=== PATIENT | male | born 1990 | race Caucasian/White ===

== ENCOUNTER 2017-02-23 08:09 | Emergency (ER) | payer MEDICARE, OTHER ==
[2017-02-23 08:14] VITALS: BP 129/82; PULSE 63; RESP 18; TEMP 97
[2017-02-23] MEDS ORDERED: IBUPROFEN 600 MG TAB PO STA (08:28)
--- NOTE | 2017-02-23 08:34 | ED ---
Lower Extremity Injury HPI - General Chief Complaint: Extremity Injury, Lower Stated Complaint: Ankle Injury Time Seen by Provider: 02/23/17 08:15 Source: patient, RN notes reviewed Mode of arrival: wheelchair Limitations: no limitations - History of Present Illness Initial Comments: Patient is a 26-year-old male presents to the emergency room for evaluation of left ankle pain. Patient is present with his caregivers. Patient states he is on a swing yesterday, jumped off and twisted his left ankle. Patient states his left ankle is very swollen. Patient states having pain. Patient's caregivers thought that patient's ankle should be evaluated. Patient denies numbness or tingling in his toes. Patient denies any other injuries during incident. - Related Data Home Medications Medication Instructions Recorded Confirmed OLANZapine [ZyPREXA] 10 mg PO DAILY 10/07/14 02/23/17 Propranolol [Inderal] 40 mg PO BID 10/07/14 02/23/17 Divalproex Sodium [Depakote] 500 mg PO DAILY 02/23/17 02/23/17 Divalproex [Depakote] 250 mg PO DAILY 02/23/17 02/23/17 FLUoxetine HCL [PROzac] 80 mg PO DAILY 02/23/17 02/23/17 LORazepam [Ativan] 1 mg PO QID 02/23/17 02/23/17 Previous Rx's Medication Instructions Recorded Clindamycin Topical Soln 1 applic TOPICAL DAILY #1 applic 12/24/14 [Cleocin-T Topical Soln] Divalproex [Depakote] 1,500 mg PO HS #90 tablet. 12/24/14 Minocycline [Minocin] 100 mg PO DAILY #14 cap 12/24/14 Allergies Allergy/AdvReac Type Severity Reaction Status Date / Time No Known Allergies Allergy Verified 02/23/17 08:52 Review of Systems ROS Statement: Those systems with pertinent positive or pertinent negative responses have been documented in the HPI. ROS Other: All systems not noted in ROS Statement are negative. Past Medical History Past Medical History: Seizure Disorder Additional Past Medical History / Comment(s): anger issues, autistic, explosive disorder, mental retardation History of Any Multi-Drug Resistant Organisms: None Reported Past Surgical History: No Surgical Hx Reported Past Anesthesia/Blood Transfusion Reactions: No Reported Reaction Past Psychological History: ADD/ADHD Additional Psychological History / Comment(s): Intermittent explosive disorder Smoking Status: Never smoker Past Alcohol Use History: None Reported Additional Past Alcohol Use History / Comment(s): Patient resides at a snf and has a guardian. He denies smoking, medical marijuana or marijuana use , street drug use or alcohol use. Patient is single. Past Drug Use History: None Reported - Past Family History Mother Additional Family Medical History / Comment(s): Patient states mother is 44 years old and alive. Patient also has 1 brother and 1 sister which she state are healthy. General Exam - General Exam Comments Initial Comments: Sitting in exam room, no acute distress. Limitations: no limitations General appearance: alert, in no apparent distress Head exam: Present: atraumatic, normocephalic, normal inspection Eye exam: Present: normal appearance ENT exam: Present: normal exam Neck exam: Present: normal inspection Respiratory exam: Present: normal lung sounds bilaterally. Absent: respiratory distress Cardiovascular Exam: Present: regular rate, normal rhythm, normal heart sounds Left Ankle exam: Present: full ROM, tenderness (Lateral malleolus), swelling ( Lateral malleolus). Absent: normal inspection Foot/Toe exam: Present: normal inspection, full ROM. Absent: tenderness Neurovascular tendon exam: Present: no vascular compromise. Absent: pulse deficit (2+ dorsal pedal and posterior tibial pulses), abnormal cap refill ( Capillary refill less than 2 seconds) Back exam: Present: normal inspection Neurological exam: Present: alert, oriented X3, CN II-XII intact Psychiatric exam: Present: normal affect, normal mood Skin exam: Present: warm, dry, intact, normal color. Absent: rash Course Vital Signs 02/23/17 08:12 Temperature 97.0 F L Pulse Rate 63 Respiratory 18 Rate Blood Pressure 129/82 O2 Sat by Pulse 98 Oximetry Procedures - Orthopedic Splinting/Casting Injury #1 Side: left Lower Extremity Injury Location: ankle Lower Extremity Immobilizer: posterior splint (Short leg OCL posterior splint placed. 3 x 35". Neurovascular function is assessed and intact.) Medical Decision Making - Medical Decision Making Patient is a 26-year-old male presents emergency room for evaluation of left ankle pain and swelling. Left foot x-ray shows no acute findings. Left ankle x -ray showed a questionable avulsion fracture of the distal fibula. Patient placed in a short leg OCL splint and advised to follow-up with electronic commerce specialist for further evaluation. Patient's caregivers state they understand that was discussed with them. Return parameters discussed. Case discussed Dr. Sumner. - Radiology Data Radiology results: report reviewed, image reviewed Disposition Clinical Impression: Avulsion fracture of distal fibula Disposition: HOME SELF-CARE Condition: Good Instructions: Avulsion Fracture (ED) Additional Instructions: Rest, elevate and ice elevate and ice for 20 minutes on and off. Do not get splint wet. Do not remove splint until follow-up with electronic commerce specialist. Please follow-up with electronic commerce specialist in 24-48 hours for reevaluation. Tylenol or Motrin as needed for discomfort. Keep weight off of left foot. If new symptoms develop or symptoms worsen, please return to the ER. Referrals: Jimmy Purvis PAC [PHYSICIAN DELI ASSOCIATE] - 1-2 days Time of Disposition: 09:23
--- NOTE | 2017-02-23 08:48 | XR ---
EXAMINATION TYPE: XR foot complete LT DATE OF EXAM: 02/23/2017 8:44 AM COMPARISON: NONE HISTORY: Pain swelling TECHNIQUE: 3 view left foot FINDINGS: No acute fractures are evident. Joint spaces are preserved. Soft tissues appear unremarkabl e. Follow-up exam can be performed 7-10 days from acute trauma for continued pain. IMPRESSION: 1. Normal three-view left foot
--- NOTE | 2017-02-23 08:50 | XR ---
EXAMINATION TYPE: XR ankle complete LT DATE OF EXAM: 02/23/2017 8:44 AM COMPARISON: NONE HISTORY: Pain swelling lateral TECHNIQUE: 3 view left ankle FINDINGS: Ankle mortise is intact. There is soft tissue swelling over the lateral malleolus. Extremely subtle lucency may be at the tip of the distal fibula. This could be artifact. A displaced fracture is not identified. No additional areas suspicious for fracture is evident. IMPRESSION: 1. Nondisplaced avulsion at the tip of the distal ulna is not excluded. Follow-up exam in 7 days cou ld confirm possible avulsion. 2. Overlying soft tissue swelling lateral malleolus.
== END 2017-02-23 09:36 | disposition home or self-care (01) ==
LOC: EC 08:09
DX: S82.65XA Nondisplaced fracture of lateral malleolus of left fibula, initial encounter for closed fracture (principal); G40.909 Epilepsy, unspecified, not intractable, without status epilepticus; Z79.899 Other long term (current) drug therapy; X50.1XXA Overexertion from prolonged static or awkward postures, initial encounter; Y93.39 Activity, other involving climbing, rappelling and jumping off
CPT/HCPCS: 29515; 99283

== ENCOUNTER → 2017-03-09 | Outpatient (CLI) | payer MEDICARE, OTHER ==
[2017-03-09 08:13] LABS: Basophils % (A) 0 %; CHCM 34.1; Eosinophils % (A) 0 %; HCT 46.7 % (39.0-53.0); HDW 2.53; HGB 15.5 gm/dL (13.0-17.5); Luc % (Auto) 3; Lymphocytes # (A) 2.3 k/uL (1.0-4.8); Lymphocytes % (A) 56 %; MCH 33.1 pg (25.0-35.0); MCHC 33.1 g/dL (31.0-37.0); MCV 100.1 fL (80.0-100.0); Mean Platelet Volume 8.9; Monocytes # (A) 0.3 k/uL (0-1.0); Monocytes % (A) 7 %; Neutrophils # (A) 1.4 k/uL (1.3-7.7); Neutrophils % (A) 34 %; RBC 4.66 m/uL (4.30-5.90); RDW 12.6 % (11.5-15.5); WBC 4.2 k/uL (3.8-10.6)
[2017-03-09 08:31] LABS: ALT 33 U/L (21-72); AST 28 U/L (17-59); Alkaline Phosphatase 67 U/L (38-126); Anion Gap 12 mmol/L; Bilirubin, Delta 0.2 mg/dL (0.0-0.2); Blood Urea Nitrogen 17 mg/dL (9-20); Calcium 9.7 mg/dL (8.4-10.2); Carbon Dioxide 29 mmol/L (22-30); Chloride 103 mmol/L (98-107); Glucose 77 mg/dL (74-99); Non-African American GFR(MDRD) >60 (>60 ml/min/1.73 sqM); Potassium 4.6 mmol/L (3.5-5.1); Sodium 144 mmol/L (137-145); Total Bilirubin 0.5 mg/dL (0.2-1.3); Total Protein 7.1 g/dL (6.3-8.2)
[2017-03-09 10:48] LABS: Hemoglobin A1C 4.7 % (4.2-6.1)
[2017-03-09 11:53] LABS: Manual Review Performed
== END | disposition home or self-care (01) ==
LOC: LABWHC1 06:51
PROVIDERS: ATTEND Psychiatry & Neurology Psychiatry
DX: T50.905A Adverse effect of unspecified drugs, medicaments and biological substances, initial encounter (principal)
CPT/HCPCS: 36415; 80048; 80076; 80164; 83036; 84443; 85025

== ENCOUNTER → 2018-01-17 | Outpatient (CLI) | payer MEDICARE, OTHER ==
[2018-01-17 09:25] LABS: Basophils % (A) 0 %; Eosinophils % (A) 1 %; HGB 15.8 gm/dL (13.0-17.5); Lymphocytes # (A) 2.4 k/uL (1.0-4.8); Lymphocytes % (A) 58 %; MCH 32.4 pg (25.0-35.0); MCHC 34.3 g/dL (31.0-37.0); MCV 94.3 fL (80.0-100.0); Mean Platelet Volume 9.4; Monocytes # (A) 0.2 k/uL (0-1.0); Monocytes % (A) 5 %; Neutrophils # (A) 1.4 k/uL (1.3-7.7); Neutrophils % (A) 33 %; Platelet Count 162 k/uL (150-450); RBC 4.88 m/uL (4.30-5.90); RDW 11.9 % (11.5-15.5); WBC 4.2 k/uL (3.8-10.6)
[2018-01-17 09:45] LABS: ALT 18 U/L (21-72); AST 25 U/L (17-59); Albumin 4.3 g/dL (3.5-5.0); Alkaline Phosphatase 55 U/L (38-126); Anion Gap 14 mmol/L; Bilirubin, Delta 0.3 mg/dL (0.0-0.2); Bilirubin,Unconjugated 0.2 mg/dL (0.0-1.1); Blood Urea Nitrogen 14 mg/dL (9-20); Calcium 9.7 mg/dL (8.4-10.2); Carbon Dioxide 29 mmol/L (22-30); Chloride 103 mmol/L (98-107); Glucose 69 mg/dL (74-99); Potassium 4.3 mmol/L (3.5-5.1); Sodium 146 mmol/L (137-145); Total Bilirubin 0.5 mg/dL (0.2-1.3); Total Protein 7.2 g/dL (6.3-8.2)
[2018-01-17 10:03] LABS: T4, Free (Free Thyroxine) 0.92 ng/dL (0.78-2.19)
[2018-01-17 10:21] LABS: Valproic Acid (Depakene) 102.3 ug/mL
[2018-01-17 18:54] LABS: Hemoglobin A1C 4.7 % (4.0-6.0)
== END | disposition home or self-care (01) ==
LOC: LABWHC1 06:35
PROVIDERS: ATTEND Psychiatry & Neurology Psychiatry
DX: Z51.81 Encounter for therapeutic drug level monitoring (principal); Z79.899 Other long term (current) drug therapy
CPT/HCPCS: 36415; 80048; 80076; 80164; 83036; 84439; 84443; 85025

== ENCOUNTER → 2018-12-06 | Outpatient (CLI) | payer MEDICARE, OTHER ==
[2018-12-06 08:30] LABS: Basophils % (A) 1 %; Eosinophils % (A) 1 %; HCT 46.2 % (39.0-53.0); HGB 15.4 gm/dL (13.0-17.5); Lymphocytes % (A) 50 %; MCH 32.2 pg (25.0-35.0); MCHC 33.2 g/dL (31.0-37.0); Mean Platelet Volume 8.9; Monocytes # (A) 0.4 k/uL (0-1.0); Monocytes % (A) 10 %; Neutrophils # (A) 1.5 k/uL (1.3-7.7); Neutrophils % (A) 36 %; Platelet Count 146 k/uL (150-450); RBC 4.77 m/uL (4.30-5.90); RDW 12.4 % (11.5-15.5)
[2018-12-06 09:40] LABS: Appearance,Urine Clear (Clear); Bilirubin,Urine Negative (Negative); Blood,Urine Negative (Negative); Color,Urine Yellow; Glucose,Urine (UA) Negative (Negative); Ketones,Urine Negative (Negative); Leukocyte Esterase,Urine Negative (Negative); Nitrite,Urine Negative (Negative); PH, Urine 6.5 (5.0-8.0); Protein,Urine Negative (Negative); Specific Gravity,Urine 1.016 (1.001-1.035); Urobilinogen,Urine <2.0 mg/dL (<2.0)
[2018-12-06 10:13] LABS: Erythrocyte Sedimentation Rate 2 mm/hr (0-15)
[2018-12-06 17:54] LABS: Vitamin D 25 Hydroxy 79.9 ng/mL (30.0-100.0)
[2018-12-06 18:31] LABS: Albumin 4.5 g/dL (3.80-4.90); Albumin/Globulin Ratio 1.88 (1.60-3.17); Anion Gap 9.1 mmol/L (4.00-12.00); Calcium 9.6 mg/dL (8.7-10.3); Carbon Dioxide 26.9 mmol/L (21.6-31.8); Globulin 2.4 g/dL (1.6-3.3); LDL Cholesterol,Calculated 65.6 mg/dL (0.0-131.0); Potassium 4.2 mmol/L (3.5-5.5); Total Bilirubin 0.5 mg/dL (0.3-1.2); Total Protein 6.9 g/dL (6.2-8.2); VLDL Calculation 13.4 mg/dL (5.00-40.00)
== END ==
LOC: LABWHC1 07:47
PROVIDERS: ATTEND Family Medicine
DX: Z00.01 Encounter for general adult medical examination with abnormal findings (principal); Z79.899 Other long term (current) drug therapy
CPT/HCPCS: 36415; 80053; 80061; 81003; 82306; 82550; 82607; 84443; 85025; 85652

== ENCOUNTER 2019-02-03 21:00 | Emergency (ER) | payer MEDICARE, OTHER ==
[2019-02-03 21:13] VITALS: RESP 16
[2019-02-03] MEDS ORDERED: SODIUM CHLORIDE 0.9% 1,000 ML IV ONE (21:20)
--- NOTE | 2019-02-03 21:21 | ED ---
Altered Mental Status HPI - General Chief Complaint: Altered Mental Status Stated Complaint: low pulse/wearingheart monitor Time Seen by Provider: 02/03/19 21:20 Source: patient Mode of arrival: wheelchair - History of Present Illness Initial Comments: Chris is a pleasant 28-year-old gentleman who lives in a [facility]. He is brought to the emergency department today for evaluation of possible dizziness or lightheadedness. skilled nursing employee reports that the patient was recently evaluated by his primary care noted to have a low heart rate, his Imdur was discontinued and a heart monitor was placed. munitions worker reports a two- day Chris walked into the room and seemed to hold onto a chair to steady himself and then sit down. He denied any complaints but they were concerned that he may be feeling lightheaded or his heart rate may be low again so he was brought to the emergency department for evaluation. Chris denies any specific complaints. He reports that he feels good and asks for katie angela with ice. - Related Data Home Medications Medication Instructions Recorded Confirmed FLUoxetine HCL [PROzac] 80 mg PO DAILY 02/23/17 02/23/17 LORazepam [Ativan] 1 mg PO QID 02/23/17 02/23/17 Benztropine Mesylate [Cogentin] 1 mg PO DAILY PRN 02/03/19 02/03/19 Divalproex ER [Depakote ER] 1,500 mg PO HS 02/03/19 02/03/19 Divalproex ER [Depakote ER] 500 mg PO DAILY 02/03/19 02/03/19 Ergocalciferol (Vitamin D2) 50,000 unit PO MO 02/03/19 02/03/19 [Vitamin D2] LORazepam [Ativan] 0.5 mg PO DAILY PRN 02/03/19 02/03/19 OLANZapine [ZyPREXA] 5 mg PO DAILY PRN 02/03/19 02/03/19 Paliperidone IM [Invega Sustenna] 234 mg IM Q28D 02/03/19 02/03/19 Allergies Allergy/AdvReac Type Severity Reaction Status Date / Time No Known Allergies Allergy Verified 02/23/17 08:52 Review of Systems ROS Statement: Those systems with pertinent positive or pertinent negative responses have been documented in the HPI. ROS Other: All systems not noted in ROS Statement are negative. Past Medical History Past Medical History: Seizure Disorder Additional Past Medical History / Comment(s): anger issues, autistic, explosive disorder, mental retardation, Low heart rate with halter monitor 02/03/2019 History of Any Multi-Drug Resistant Organisms: None Reported Past Surgical History: No Surgical Hx Reported Past Anesthesia/Blood Transfusion Reactions: No Reported Reaction Past Psychological History: ADD/ADHD Smoking Status: Never smoker Past Alcohol Use History: None Reported Past Drug Use History: None Reported - Past Family History Mother Additional Family Medical History / Comment(s): Patient states mother is 44 years old and alive. Patient also has 1 brother and 1 sister which she state are healthy. General Exam - General Exam Comments Initial Comments: Physical Exam GENERAL: Patient is well-developed and well-nourished. Patient is nontoxic and well-hydrated and is in no distress. HENT: Normocephalic, Atraumatic. EYES: PERRL, EOMI PULMONARY: Unlabored respirations. No audible rales rhonchi or wheezing was noted. CARDIOVASCULAR: There is a regular rate and rhythm without any murmurs gallops or rubs. Holter monitor in place ABDOMEN: Soft and nontender with normal bowel sounds. SKIN: Skin is clear with no lesions or rashes and otherwise unremarkable. 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 No lower extremity swelling or edema. PSYCHIATRIC: Childlike demeanor Course Vital Signs 02/03/19 02/03/19 21:08 22:29 Temperature 98.7 F 98.1 F Pulse Rate 81 78 Respiratory 16 16 Rate Blood Pressure 148/97 158/97 O2 Sat by Pulse 98 100 Oximetry Medical Decision Making - Medical Decision Making The patient was seen and evaluated, history was obtained from medical record and [facility] employee at bedside Patient has recently been evaluated for low heart rate, today he seemed to be holding onto a chair and they were concerned that he may be lightheaded to the brought him to the ER for evaluation Patient's vital signs were unremarkable he is not hypotensive or bradycardic Basic labs and imaging were ordered patient is sitting up comfortably with no complaints he is able to communicate make his needs known he asked for katie angela in a cup with ice and a straw and was given that he drinks 2 small cans of katie angela and then asked for ice water. Patient was able to ambulate inde pendently with no evidence of any deficits. Labs and imaging were unremarkable. These results were discussed with the [facility] employee and the patient was discharged home in stable condition. - Lab Data Result diagrams: 02/03/19 21:10 02/03/19 21:10 Lab Results 02/03/19 02/03/19 02/03/19 Range/Units 21:10 21:10 21:10 WBC 5.0 (3.8-10.6) k/uL RBC 5.02 (4.30-5.90) m/uL Hgb 16.0 (13.0-17.5) gm/dL Hct 48.0 (39.0-53.0) % MCV 95.6 (80.0-100.0) fL MCH 31.9 (25.0-35.0) pg MCHC 33.4 (31.0-37.0) g/dL RDW 13.2 (11.5-15.5) % Plt Count 152 (150-450) k/uL Neutrophils % 36 % Lymphocytes % 52 % Monocytes % 8 % Eosinophils % 1 % Basophils % 0 % Neutrophils # 1.8 (1.3-7.7) k/uL Lymphocytes # 2.6 (1.0-4.8) k/uL Monocytes # 0.4 (0-1.0) k/uL Eosinophils # 0.0 (0-0.7) k/uL Basophils # 0.0 (0-0.2) k/uL Sodium 143 (137-145) mmol/L Potassium 4.1 (3.5-5.1) mmol/L Chloride 105 (98-107) mmol/L Carbon Dioxide 30 (22-30) mmol/L Anion Gap 8 mmol/L BUN 12 (9-20) mg/dL Creatinine 0.69 (0.66-1.25) mg/dL Est GFR (CKD-EPI)AfAm >90 (>60 ml/min/1.73 sqM) Est GFR (CKD-EPI)NonAf >90 (>60 ml/min/1.73 sqM) Glucose 103 H (74-99) mg/dL Calcium 9.8 (8.4-10.2) mg/dL Total Bilirubin 0.6 (0.2-1.3) mg/dL AST 30 (17-59) U/L ALT 22 (21-72) U/L Alkaline Phosphatase 57 (38-126) U/L Troponin I <0.012 (0.000-0.034) ng/mL Total Protein 7.9 (6.3-8.2) g/dL Albumin 4.8 (3.5-5.0) g/dL Urine Color Urine Appearance (Clear) Urine pH (5.0-8.0) Ur Specific [place] (1.001-1.035) Urine Protein (Negative) Urine Glucose (UA) (Negative) Urine Ketones (Negative) Urine Blood (Negative) Urine Nitrite (Negative) Urine Bilirubin (Negative) Urine Urobilinogen (<2.0) mg/dL Ur Leukocyte Esterase (Negative) Urine Opiates Screen (NotDetected) Ur Oxycodone Screen (NotDetected) Urine Methadone Screen (NotDetected) Ur Propoxyphene Screen (NotDetected) Ur Barbiturates Screen (NotDetected) U Tricyclic Antidepress (NotDetected) Ur Phencyclidine Scrn (NotDetected) Ur Amphetamines Screen (NotDetected) U Methamphetamines Scrn (NotDetected) U Benzodiazepines Scrn (NotDetected) Urine Cocaine Screen (NotDetected) U Marijuana (THC) Screen (NotDetected) 02/03/19 Range/Units 21:28 WBC (3.8-10.6) k/uL RBC (4.30-5.90) m/uL Hgb (13.0-17.5) gm/dL Hct (39.0-53.0) % MCV (80.0-100.0) fL MCH (25.0-35.0) pg MCHC (31.0-37.0) g/dL RDW (11.5-15.5) % Plt Count (150-450) k/uL Neutrophils % % Lymphocytes % % Monocytes % % Eosinophils % % Basophils % % Neutrophils # (1.3-7.7) k/uL Lymphocytes # (1.0-4.8) k/uL Monocytes # (0-1.0) k/uL Eosinophils # (0-0.7) k/uL Basophils # (0-0.2) k/uL Sodium (137-145) mmol/L Potassium (3.5-5.1) mmol/L Chloride (98-107) mmol/L Carbon Dioxide (22-30) mmol/L Anion Gap mmol/L BUN (9-20) mg/dL Creatinine (0.66-1.25) mg/dL Est GFR (CKD-EPI)AfAm (>60 ml/min/1.73 sqM) Est GFR (CKD-EPI)NonAf (>60 ml/min/1.73 sqM) Glucose (74-99) mg/dL Calcium (8.4-10.2) mg/dL Total Bilirubin (0.2-1.3) mg/dL AST (17-59) U/L ALT (21-72) U/L Alkaline Phosphatase (38-126) U/L Troponin I (0.000-0.034) ng/mL Total Protein (6.3-8.2) g/dL Albumin (3.5-5.0) g/dL Urine Color Light Yellow Urine Appearance Clear (Clear) Urine pH 6.5 (5.0-8.0) Ur Specific [place] 1.006 (1.001-1.035) Urine Protein Negative (Negative) Urine Glucose (UA) Negative (Negative) Urine Ketones Negative (Negative) Urine Blood Negative (Negative) Urine Nitrite Negative (Negative) Urine Bilirubin Negative (Negative) Urine Urobilinogen <2.0 (<2.0) mg/dL Ur Leukocyte Esterase Negative (Negative) Urine Opiates Screen Not Detected (NotDetected) Ur Oxycodone Screen Not Detected (NotDetected) Urine Methadone Screen Not Detected (NotDetected) Ur Propoxyphene Screen Not Detected (NotDetected) Ur Barbiturates Screen Not Detected (NotDetected) U Tricyclic Antidepress Not Detected (NotDetected) Ur Phencyclidine Scrn Not Detected (NotDetected) Ur Amphetamines Screen Not Detected (NotDetected) U Methamphetamines Scrn Not Detected (NotDetected) U Benzodiazepines Scrn Detected H (NotDetected) Urine Cocaine Screen Not Detected (NotDetected) U Marijuana (THC) Screen Not Detected (NotDetected) Disposition Clinical Impression: Well adult health check Disposition: HOME SELF-CARE Condition: Stable Instructions (If sedation given, give patient instructions): Altered Mental Status (ED) Is patient prescribed a controlled substance at d/c from ED?: No Referrals: Epi Haddad MD [Primary Care Provider] - 1-2 days
[2019-02-03 21:40] LABS: Basophils % (A) 0 %; Eosinophils % (A) 1 %; Lymphocytes # (A) 2.6 k/uL (1.0-4.8); Lymphocytes % (A) 52 %; MCH 31.9 pg (25.0-35.0); MCHC 33.4 g/dL (31.0-37.0); MCV 95.6 fL (80.0-100.0); Mean Platelet Volume 9.2; Monocytes # (A) 0.4 k/uL (0-1.0); Monocytes % (A) 8 %; Neutrophils # (A) 1.8 k/uL (1.3-7.7); Neutrophils % (A) 36 %; Platelet Count 152 k/uL (150-450); RBC 5.02 m/uL (4.30-5.90); RDW 13.2 % (11.5-15.5)
[2019-02-03 21:44] LABS: Appearance,Urine Clear (Clear); Bilirubin,Urine Negative (Negative); Blood,Urine Negative (Negative); Color,Urine Light Yellow; Glucose,Urine (UA) Negative (Negative); Ketones,Urine Negative (Negative); Leukocyte Esterase,Urine Negative (Negative); Nitrite,Urine Negative (Negative); PH, Urine 6.5 (5.0-8.0); Protein,Urine Negative (Negative); Specific Gravity,Urine 1.006 (1.001-1.035); Urobilinogen,Urine <2.0 mg/dL (<2.0)
--- NOTE | 2019-02-03 21:51 | XR ---
EXAMINATION TYPE: XR chest 2V DATE OF EXAM: 02/03/2019 COMPARISON: 07/24/2011 HISTORY: Altered mental status TECHNIQUE: Frontal and lateral views of the chest are obtained. FINDINGS: Heart and mediastinum are normal. Lungs are clear. Diaphragm is normal. Bony thorax is int act. There is mild thoracic dextroscoliosis. IMPRESSION: No cardiopulmonary disease.. No change.
[2019-02-03 21:55] LABS: Amphetamine Screen,Urine Not Detected (NotDetected); Barbiturate Screen,Urine Not Detected (NotDetected); Benzodiazepines Screen,Urine Detected (NotDetected); Cocaine Screen,Urine Not Detected (NotDetected); Methadone Screen, Urine Not Detected (NotDetected); Opiate Screen,Urine Not Detected (NotDetected); Oxycodone Screen, Urine Not Detected (NotDetected); Phencyclidine Screen,Urine Not Detected (NotDetected); Tricyclic Antidepressant,Urine Not Detected (NotDetected); Urn Cannabinoid Scrn Not Detected (NotDetected)
[2019-02-03 22:18] LABS: ALT 22 U/L (21-72); AST 30 U/L (17-59); Albumin 4.8 g/dL (3.5-5.0); Alkaline Phosphatase 57 U/L (38-126); Anion Gap 8 mmol/L; Blood Urea Nitrogen 12 mg/dL (9-20); Calcium 9.8 mg/dL (8.4-10.2); Carbon Dioxide 30 mmol/L (22-30); Chloride 105 mmol/L (98-107); Glucose 103 mg/dL (74-99); Potassium 4.1 mmol/L (3.5-5.1); Sodium 143 mmol/L (137-145); Total Bilirubin 0.6 mg/dL (0.2-1.3); Total Protein 7.9 g/dL (6.3-8.2)
[2019-02-03 22:35] VITALS: BP 158/97; PULSE 78; TEMP 98.1
== END 2019-02-03 22:33 | disposition home or self-care (01) ==
LOC: EC 21:00
DX: Z00.00 Encounter for general adult medical examination without abnormal findings (principal); F91.8 Other conduct disorders; G40.909 Epilepsy, unspecified, not intractable, without status epilepticus; F84.0 Autistic disorder; F79 Unspecified intellectual disabilities; Z79.899 Other long term (current) drug therapy; Z95.811 Presence of heart assist device
CPT/HCPCS: 36415; 71046; 80053; 80306; 81003; 84484; 85025; 93005; 96360; 99285

== ENCOUNTER → 2019-02-28 | Outpatient (CLI) | payer MEDICARE, OTHER | LOC: RADECHMAIN 10:01 | PROVIDERS: ATTEND Family Medicine | DX: Z53.9 Procedure and treatment not carried out, unspecified reason (principal) ==

== ENCOUNTER → 2019-04-05 | Outpatient (CLI) | payer MEDICARE, OTHER ==
[2019-04-05 10:57] LABS: Basophils % (A) 0 %; Eosinophils % (A) 1 %; HCT 44.4 % (39.0-53.0); HGB 14.8 gm/dL (13.0-17.5); Lymphocytes # (A) 1.8 k/uL (1.0-4.8); Lymphocytes % (A) 52 %; MCHC 33.5 g/dL (31.0-37.0); MCV 95.6 fL (80.0-100.0); Mean Platelet Volume 8.7; Monocytes # (A) 0.3 k/uL (0-1.0); Monocytes % (A) 8 %; Neutrophils # (A) 1.3 k/uL (1.3-7.7); Neutrophils % (A) 37 %; Platelet Count 159 k/uL (150-450); RBC 4.64 m/uL (4.30-5.90); WBC 3.4 k/uL (3.8-10.6)
[2019-04-05 17:47] LABS: African American GFR (CKD) 139.9 (60.0-200.0); Albumin 4.4 g/dL (3.80-4.90); Albumin/Globulin Ratio 2.2 (1.60-3.17); Anion Gap 7.7 mmol/L (4.00-12.00); BUN/Creat Ratio 16.25 Ratio (12.00-20.00); Calcium 9.5 mg/dL (8.7-10.3); Carbon Dioxide 28.3 mmol/L (21.6-31.8); Potassium 4.3 mmol/L (3.5-5.5); Total Bilirubin 0.5 mg/dL (0.2-1.2); Total Protein 6.4 g/dL (6.2-8.2)
[2019-04-05 18:17] LABS: Gliadin AB IgA, Unit <0.2 U/mL
[2019-04-05 18:46] LABS: Helicobacter pylori IgG Abs <0.40 U/mL
== END | disposition home or self-care (01) ==
LOC: LABWHC1 10:08
PROVIDERS: ATTEND Internal Medicine
DX: R11.2 Nausea with vomiting, unspecified (principal)
CPT/HCPCS: 36415; 80053; 82150; 83516; 83690; 85025; 86677

== ENCOUNTER 2019-04-19 17:57 | Inpatient (IN) | payer MEDICARE, MEDICAID ==
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
[2019-04-19 18:58] LABS: Amphetamine Screen,Urine Not Detected (NotDetected); Barbiturate Screen,Urine Not Detected (NotDetected); Benzodiazepines Screen,Urine Detected (NotDetected); Cocaine Screen,Urine Not Detected (NotDetected); Methadone Screen, Urine Not Detected (NotDetected); Opiate Screen,Urine Not Detected (NotDetected); Oxycodone Screen, Urine Not Detected (NotDetected); Phencyclidine Screen,Urine Not Detected (NotDetected); Tricyclic Antidepressant,Urine Not Detected (NotDetected); Urn Cannabinoid Scrn Not Detected (NotDetected)
[2019-04-19] MEDS ORDERED: ZIPRASIDONE 20 MG VIAL IM STA (20:12)
[2019-04-19] MEDS ORDERED: LORazepam 2 MG/ML INJ IM STA (20:12)
[2019-04-19] MEDS ORDERED: MAGNESIUM HYDROXIDE 2,400 MG/10 ML CUP PO PRN (21:52)
[2019-04-19] MEDS ORDERED: MAG HYDROX/AL HYDROX/SIMETH 30 ML CUP PO PRN (21:52)
[2019-04-19] MEDS ORDERED: OLANZapine 5 MG TAB PO PRN (21:59)
[2019-04-19] MEDS ORDERED: LORazepam 0.5 MG TAB PO PRN (21:59)
[2019-04-19] MEDS ORDERED: BENZTROPINE MESYLATE 1 MG TAB PO PRN (21:59)
[2019-04-19] MEDS: DIVALPROEX ER 500 MG TAB.ER.24H PO SCH (22:38)
[2019-04-20] MEDS: ACETAMINOPHEN TAB 325 MG TAB PO PRN ×2 (04:23→17:01)
[2019-04-20] MEDS: FAMOTIDINE 20 MG TAB PO SCH ×2 (05:40→16:13)
[2019-04-20] MEDS ORDERED: DIVALPROEX ER 500 MG TAB.ER.24H PO SCH (08:00)
[2019-04-20] MEDS: FLUoxetine HCL 20 MG CAP PO SCH (08:18)
[2019-04-20] MEDS: MINOCYCLINE 50 MG CAP PO SCH (08:18)
[2019-04-20] MEDS: DIVALPROEX ER 250 MG TAB.ER.24H PO SCH (08:18)
[2019-04-20] MEDS: OLANZapine 10 MG TAB PO SCH ×2 (08:18→20:08)
[2019-04-20] MEDS: NON-FORMULARY DRUG (Clindamycin Topical Soln 1 APPLIC) TOPICAL SCH (08:19)
[2019-04-20] MEDS: LORazepam 1 MG TAB PO SCH ×5 (08:19→20:08)
[2019-04-20 10:08] LABS: ALT 30 U/L (21-72); AST 101 U/L (17-59); African American GFR (CKD) >90 (>60 ml/min/1.73 sqM); Albumin 4.7 g/dL (3.5-5.0); Alkaline Phosphatase 57 U/L (38-126); Anion Gap 10 mmol/L; Bilirubin, Delta 0.1 mg/dL (0.0-0.2); Bilirubin,Unconjugated 0.5 mg/dL (0.0-1.1); Blood Urea Nitrogen 6 mg/dL (9-20); Calcium 9.4 mg/dL (8.4-10.2); Carbon Dioxide 31 mmol/L (22-30); Chloride 98 mmol/L (98-107); Cholesterol 128 mg/dL (<200); Glucose 111 mg/dL (74-99); HDL Cholesterol 52 mg/dL (40-60); LDL Cholesterol,Calculated 53 mg/dL (0-99); Potassium 3.9 mmol/L (3.5-5.1); Sodium 139 mmol/L (137-145); Total Bilirubin 0.6 mg/dL (0.2-1.3); Total Protein 7.5 g/dL (6.3-8.2); Triglycerides 116 mg/dL (<150)
[2019-04-20 10:18] LABS: Basophils % (A) 0 %; Eosinophils % (A) 1 %; HCT 43.9 % (39.0-53.0); HGB 14.5 gm/dL (13.0-17.5); Lymphocytes # (A) 1.3 k/uL (1.0-4.8); Lymphocytes % (A) 22 %; MCH 32.1 pg (25.0-35.0); MCV 97.3 fL (80.0-100.0); Mean Platelet Volume 9.2; Monocytes # (A) 0.6 k/uL (0-1.0); Monocytes % (A) 10 %; Neutrophils # (A) 3.9 k/uL (1.3-7.7); Neutrophils % (A) 65 %; Platelet Count 147 k/uL (150-450); RBC 4.52 m/uL (4.30-5.90); RDW 13.3 % (11.5-15.5)
[2019-04-20] MEDS ORDERED: METOPROLOL SUCCINATE (ER) 25 MG TAB.ER.24H PO SCH (16:00)
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
[2019-04-20 18:54] LABS: Hemoglobin A1C 4.8 % (4.0-6.0)
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
[2019-04-20] MEDS ORDERED: TRETINOIN TOPICAL SCH (20:00)
[2019-04-20] MEDS: DIVALPROEX ER 500 MG TAB.ER.24H PO SCH (20:08)
[2019-04-21] MEDS: FAMOTIDINE 20 MG TAB PO SCH (05:38)
[2019-04-21 06:36] VITALS: BP 164/75; PULSE 91; RESP 20; TEMP 98.2
[2019-04-21] MEDS: FLUoxetine HCL 20 MG CAP PO SCH (08:19)
[2019-04-21] MEDS: MINOCYCLINE 50 MG CAP PO SCH (08:19)
[2019-04-21] MEDS: OLANZapine 10 MG TAB PO SCH (08:19)
[2019-04-21] MEDS: LORazepam 1 MG TAB PO SCH ×2 (08:19→13:26)
[2019-04-21] MEDS: DIVALPROEX ER 250 MG TAB.ER.24H PO SCH (08:19)
[2019-04-21] MEDS: NON-FORMULARY DRUG (Clindamycin Topical Soln 1 APPLIC) TOPICAL SCH (08:21)
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
[2019-04-24] MEDS ORDERED: ERGOCALCIFEROL 50,000 UNIT CAP PO SCH (09:00)
[2019-05-11] MEDS ORDERED: PALIPERIDONE IM 234 MG/1.5 ML SYG IM SCH (09:00)
== END 2019-04-21 15:12 | disposition home or self-care (01) | DRG 883 ==
LOC: EC 17:57 → 3MHU 21:40
PROVIDERS: ADMIT Psychiatry & Neurology Psychiatry; ATTEND Psychiatry & Neurology Psychiatry
DX: F63.81 Intermittent explosive disorder (principal); F39 Unspecified mood [affective] disorder; F71 Moderate intellectual disabilities; F84.0 Autistic disorder; F90.9 Attention-deficit hyperactivity disorder, unspecified type; G40.909 Epilepsy, unspecified, not intractable, without status epilepticus; I10 Essential (primary) hypertension; Z78.1 Physical restraint status; Z79.899 Other long term (current) drug therapy; Z91.5 Personal history of self-harm
CPT/HCPCS: 36415; 80053; 80061; 80164; 80306; 82075; 82248; 83036; 84443; 85025; 96372; 99285

== ENCOUNTER → 2019-07-13 | Outpatient (CLI) | payer MEDICARE, MEDICAID ==
--- NOTE | 2019-07-13 09:37 | US ---
EXAMINATION TYPE: US abdomen complete DATE OF EXAM: 07/13/2019 COMPARISON: NONE CLINICAL HISTORY: R94.4 ABN RENAL FUNCTIONS. Abnormal labs EXAM MEASUREMENTS: Liver Length: 13.4 cm Gallbladder Wall: 0.2 cm CBD: 0.4 cm Spleen: 11.2 cm Right Kidney: 11.0 x 5.2 x 4.9 cm Left Kidney: 12.1 x 5.5 x 5.9 cm Pt unable to take breath in and hold it, limited visualization Pancreas: Body wnl, head and tail obscured by overlying bowel gas Liver: Visualized portions appeared wnl, left lobe difficult to visualize due to overlying bowel gas Gallbladder: Nondependent nonshadowing polyp anterior wall near neck measures 4mm Evidence for sonographic Burgos's sign: No CBD: wnl Spleen: wnl Right Kidney: wnl Left Kidney: No evidence of hydro, somewhat limited visualization due to overlying bowel gas Upper IVC: wnl Abd Aorta: Prox and mid portions Obscured by overlying bowel gas, distal portion appeared wnl The liver is homogenous although the left hepatic lobe is partially obscured. The intrahepatic porti on of the IVC and proximal abdominal aorta are within normal limits. There is no evidence of choleli thiasis. Common bile duct is unremarkable. The visualized portions of the pancreas are homogenous. The spleen is unremarkable. Kidneys are symmetric and free of hydronephrosis. No renal lesions are seen. IMPRESSION: 1. Subcentimeter gallbladder polyp as seen (4 mm). Annual surveillance is recommended for polyps of a scites. 2. Limited exam in regards to the pancreas, left hepatic lobe, left kidney and abdominal aorta. Remai nder of the exam is unremarkable. No sonographic evidence of hydronephrosis nor acute cholecystitis.
== END ==
LOC: RADUSWWP 08:25
PROVIDERS: ATTEND Internal Medicine Hematology & Oncology
DX: K82.4 Cholesterolosis of gallbladder (principal)
CPT/HCPCS: 76700

== ENCOUNTER 2019-08-29 18:24 | Emergency (ER) | payer MEDICARE, OTHER ==
[2019-08-29 18:35] VITALS: BP 150/86; PULSE 83; RESP 18; TEMP 97.9
[2019-08-29] MEDS ORDERED: ACETAMINOPHEN TAB 325 MG TAB PO STA (18:39)
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
--- NOTE | 2019-08-29 18:58 | XR ---
EXAMINATION TYPE: XR foot complete RT DATE OF EXAM: 08/29/2019 COMPARISON: NONE HISTORY: Pain in the little toe TECHNIQUE: 3 views FINDINGS: There is an Achilles calcaneal spur. Metatarsals are intact. I see no fracture nor dislocat ion. There is mild hallux valgus. IMPRESSION: No fracture seen. Little toe appears intact.
== END 2019-08-29 19:46 | disposition home or self-care (01) ==
LOC: EC 18:24
DX: S90.121A Contusion of right lesser toe(s) without damage to nail, initial encounter (principal); R62.50 Unspecified lack of expected normal physiological development in childhood; G40.909 Epilepsy, unspecified, not intractable, without status epilepticus; F79 Unspecified intellectual disabilities; F84.0 Autistic disorder; R00.1 Bradycardia, unspecified; Z79.899 Other long term (current) drug therapy; Z95.811 Presence of heart assist device; W51.XXXA Accidental striking against or bumped into by another person, initial encounter; Y93.01 Activity, walking, marching and hiking
CPT/HCPCS: 99284

== ENCOUNTER 2022-02-22 19:52 | Emergency (ER) | payer MEDICARE, OTHER ==
[2022-02-22 20:02] VITALS: RESP 16; TEMP 98.6
--- NOTE | 2022-02-22 20:16 | ED ---
General Adult HPI - General Chief complaint: Psychiatric Symptoms Stated complaint: Mental Health Time Seen by Provider: 02/22/22 20:06 Source: patient, EMS, Caregiver Mode of arrival: EMS - History of Present Illness Initial comments: Dictation was produced using MyScreen dictation software. please excuse any grammatical, word or spelling errors. Chief Complaint: 31 yo male with past medical history of seizure disorder, autism and mental delay presents to the ER after aggressive behavior History of Present Illness: History of present illness obtained from retirement staff regional education manager. She reports that patient was having a bad day. He was upset and started to have aggressive behavior to the point where he became violent against staph and other individuals at the retirement. long term staff called law enforcement. Patient ended up being brought to the emergency department. Patient is known for having aggressive behavior secondary to his autism and mental delay. Patient is a poor historian due to his chronic mental issues. He does appear to be baseline according to staff member at the bedside. The ROS documented in this emergency department record has been reviewed and confirmed by me. Those systems with pertinent positive or negative responses have been documented in the HPI. All other systems are other negative and/or noncontributory. PHYSICAL EXAM: General Impression: Alert and oriented x3, not in acute distress HEENT: Normocephalic atraumatic, extra-ocular movements intact, pupils equal and reactive to light bilaterally, mucous membranes moist. Cardiovascular: Heart regular rate and rhythm Chest: Able to complete full sentences, no retractions, no tachypnea Abdomen: abdomen soft, non-tender, non-distended, no organomegaly Musculoskeletal: Pulses present and equal in all extremities, no peripheral edema Motor: no focal deficits noted Neurological: CN II-XII grossly intact, no focal motor or sensory deficits noted Skin: Intact with no visualized rashes Psych: Normal affect and mood ED course: 31-year-old well-appearing male with past medical history of autism, mental delay presents to the ER after episode of aggressive behavior. Ends upon arrival are within acceptable limits. Patient is well-appearing at bedside is not showing signs of acute distress. Cooperative and benign. Staff member at the bedside reports that patient has had issues with aggressive behavior in the past and is not uncommon for him to have these outbursts. He does have prescribed when necessary medicines in the event he has these episodes. Nonetheless patient is stable and cooperative. Patient not showing any signs of psychosis or acute psychiatric issue. Patient discharged back to retirement. - Related Data Home Medications Medication Instructions Recorded Confirmed FLUoxetine HCL [PROzac] 80 mg PO DAILY@0800 02/23/17 04/19/19 LORazepam [Ativan] 1 mg PO QID 02/23/17 04/19/19 Benztropine Mesylate [Cogentin] 1 mg PO DAILY PRN 02/03/19 04/19/19 Divalproex ER [Depakote ER] 1,500 mg PO HS 02/03/19 04/19/19 Divalproex ER [Depakote ER] 500 mg PO DAILY@0800 02/03/19 04/19/19 Ergocalciferol (Vitamin D2) 50,000 unit PO MO 02/03/19 04/19/19 [Vitamin D2] LORazepam [Ativan] 0.5 mg PO DAILY PRN 02/03/19 04/19/19 OLANZapine [ZyPREXA] 5 mg PO DAILY PRN 02/03/19 04/19/19 Paliperidone IM [Invega Sustenna] 234 mg IM Q28D 02/03/19 04/19/19 Clindamycin Topical Soln 1 applic TOPICAL DAILY@79904/19/19 04/19/19 [Cleocin-T Topical Soln] Divalproex ER [Depakote ER] 250 mg PO DAILY@0804/19/19 04/19/19 Metoprolol Succinate [Toprol XL] 25 mg PO DAILY@159904/19/19 04/19/19 Minocycline HCl [Minocin] 100 mg PO DAILY@79904/19/19 04/19/19 OLANZapine [ZyPREXA] 10 mg PO BID@0800,199904/19/19 04/19/19 Ranitidine HCl [Zantac] 150 mg PO BID@0600,159904/19/19 04/19/19 Tretinoin [Tretinoin 0.05%] 1 applic TOPICAL HS@199904/19/19 04/19/19 Allergies Allergy/AdvReac Type Severity Reaction Status Date / Time No Known Allergies Allergy Verified 02/22/22 19:54 Review of Systems ROS Statement: Those systems with pertinent positive or pertinent negative responses have been documented in the HPI. ROS Other: All systems not noted in ROS Statement are negative. Past Medical History Past Medical History: Seizure Disorder Additional Past Medical History / Comment(s): anger issues, autistic, explosive disorder, mental retardation, Low heart rate with halter monitor 02/03/2019 History of Any Multi-Drug Resistant Organisms: None Reported Past Surgical History: No Surgical Hx Reported Past Anesthesia/Blood Transfusion Reactions: No Reported Reaction Past Psychological History: ADD/ADHD Smoking Status: Never smoker Past Alcohol Use History: None Reported Past Drug Use History: None Reported - Past Family History Mother Additional Family Medical History / Comment(s): Patient states mother is 44 years old and alive. Patient also has 1 brother and 1 sister which she state are healthy. Course Vital Signs 02/22/22 19:55 Temperature 98.6 F Pulse Rate 106 H Respiratory 16 Rate Blood Pressure 137/78 O2 Sat by Pulse 98 Oximetry Disposition Clinical Impression: Aggressive behavior, Autism Disposition: HOME SELF-CARE Condition: Good Instructions (If sedation given, give patient instructions): Autism Spectrum Disorder (DC) Is patient prescribed a controlled substance at d/c from ED?: No Referrals: None,Stated [Primary Care Provider] - 1-2 days
[2022-02-22] MEDS ORDERED: hydrOXYzine pamoate 25 MG CAP PO STA (20:19)
[2022-02-22 20:56] VITALS: BP 126/82; PULSE 78
== END 2022-02-22 20:55 | disposition home or self-care (01) ==
LOC: SUPCPDRO 19:52 → EC 19:52
DX: F84.0 Autistic disorder (principal)

== ENCOUNTER 2022-06-16 16:38 | Emergency (ER) | payer MEDICARE, OTHER ==
[2022-06-16 16:45] VITALS: BP 137/91; PULSE 109; RESP 18; TEMP 98.1
--- NOTE | 2022-06-16 17:16 | ED ---
Psych HPI - General Chief Complaint: Psychiatric Symptoms Stated Complaint: mental health Time Seen by Provider: 06/16/22 16:43 Source: patient, Caregiver Mode of arrival: ambulatory - History of Present Illness Initial Comments: Patient is a 32-year-old male presenting to the emergency room with police escort and caregivers from his long term after aggressive activities earlier today in his long term where he lunged at several staff members scratching them. He was also hitting his head on the floor and hit his elbow on furniture. He commonly hits his head on the floor which is carpeted and well- padded. He has a small bruise to his left elbow which is consistent with an abrasion without any range of motion impairment. He denies any other complaints or concerns. He is noted to be well involved with [facility] and on a significant psychiatric regimen for his mental health disorders along with his developmental delay. In addition to his mental health and cognitive delay he has a past medical history significant for hypothyroidism, GERD and seizure disorder. - Related Data Home Medications Medication Instructions Recorded Confirmed LORazepam [Ativan] 1 mg PO QID@08,12,1430,02/23/17 06/16/22 Divalproex ER [Depakote ER] 2,000 mg PO HS@199902/03/19 06/16/22 Ergocalciferol (Vitamin D2) 50,000 unit PO MO 02/03/19 06/16/22 [Vitamin D2] Clindamycin Topical Soln 1 applic TOPICAL DAILY@0804/19/19 06/16/22 [Cleocin-T Topical Soln] Metoprolol Succinate [Toprol XL] 25 mg PO DAILY@1600 04/19/19 06/16/22 Benzoyl Peroxide 10% Wash 1 applic TOPICAL DAILY@79906/16/22 06/16/22 Dicyclomine [Bentyl] 10 mg PO TID@0800,1200,199906/16/22 06/16/22 Levothyroxine Sodium [Synthroid] 50 mcg PO DAILY@59906/16/22 06/16/22 Bowring Carbonate 900 mg PO DAILY@79906/16/22 06/16/22 Omeprazole 40 mg PO DAILY@79906/16/22 06/16/22 Tretinoin 0.1% Cream 1 applic TOPICAL HS@199906/16/22 06/16/22 cloZAPine [Clozaril] 100 mg PO BID@0800,1200 06/16/22 06/16/22 cloZAPine [Clozaril] 300 mg PO HS@2000 06/16/22 06/16/22 fluPHENAZine [Prolixin 5MG] 5 mg PO BID@0800,1200 06/16/22 06/16/22 fluvoxaMINE MALEATE 50 mg PO DAILY@0800 06/16/22 06/16/22 hydrOXYzine pamoate 50 mg PO Q4H PRN 06/16/22 06/16/22 Allergies Allergy/AdvReac Type Severity Reaction Status Date / Time No Known Allergies Allergy Verified 06/16/22 19:01 Review of Systems ROS Statement: Those systems with pertinent positive or pertinent negative responses have been documented in the HPI. ROS Other: All systems not noted in ROS Statement are negative. Past Medical History Past Medical History: Seizure Disorder Additional Past Medical History / Comment(s): anger issues, autistic, explosive disorder, mental retardation, Low heart rate with halter monitor 02/03/2019 History of Any Multi-Drug Resistant Organisms: None Reported Past Surgical History: No Surgical Hx Reported Past Anesthesia/Blood Transfusion Reactions: No Reported Reaction Past Psychological History: ADD/ADHD Smoking Status: Never smoker Past Alcohol Use History: None Reported Past Drug Use History: None Reported - Past Family History Mother Additional Family Medical History / Comment(s): Patient states mother is 44 years old and alive. Patient also has 1 brother and 1 sister which she state are healthy. General Exam Limitations: altered mental status General appearance: alert, in no apparent distress Head exam: Present: atraumatic, normocephalic, normal inspection Eye exam: Present: normal appearance, PERRL, EOMI. Absent: scleral icterus, conjunctival injection, periorbital swelling ENT exam: Present: normal exam, mucous membranes moist Neck exam: Present: normal inspection, full ROM Respiratory exam: Present: normal lung sounds bilaterally. Absent: respiratory distress, wheezes, rales, rhonchi, stridor Cardiovascular Exam: Present: regular rate, normal rhythm, normal heart sounds. Absent: systolic murmur, diastolic murmur, rubs, gallop, clicks GI/Abdominal exam: Present: soft, normal bowel sounds. Absent: distended, tenderness, guarding, rebound, rigid Extremities exam: Present: normal inspection. Absent: pedal edema, joint swelling Back exam: Present: normal inspection, full ROM Neurological exam: Present: alert, other (Cognitive delay at baseline. No seizure activity.) Psychiatric exam: Present: other (Calm and cooperative). Absent: agitated Skin exam: Present: abrasion (Medial left elbow) Course Vital Signs 06/16/22 16:39 Temperature 98.1 F Pulse Rate 109 H Respiratory 18 Rate Blood Pressure 137/91 O2 Sat by Pulse 98 Oximetry Medical Decision Making - Medical Decision Making 32-year-old male presenting to the emergency room via police escort with his caregivers after aggressive behavior at his long term. No indication for any diagnostic imaging or laboratory studies. Patient does not have any acute medical conditions presenting at this time requiring any further workup. Will clear for EPS evaluation. Patient evaluated by EPS and cleared for discharge back to long term. Caregiver remained at bedside during course of treatment. He will return to long term with her. Case discussed with Dr. Burks. - Lab Data Lab Results 06/16/22 Range/Units 17:21 Urine Opiates Screen Not Detected (NotDetected) Ur Oxycodone Screen Not Detected (NotDetected) Urine Methadone Screen Not Detected (NotDetected) Ur Propoxyphene Screen Not Detected (NotDetected) Ur Barbiturates Screen Not Detected (NotDetected) U Tricyclic Antidepress Not Detected (NotDetected) Ur Phencyclidine Scrn Not Detected (NotDetected) Ur Amphetamines Screen Not Detected (NotDetected) U Methamphetamines Scrn Not Detected (NotDetected) U Benzodiazepines Scrn Detected H (NotDetected) Urine Cocaine Screen Not Detected (NotDetected) U Marijuana (THC) Screen Not Detected (NotDetected) Disposition Clinical Impression: Delayed emotional development, Intermittent explosive disorder Disposition: HOME SELF-CARE Condition: Stable Instructions (If sedation given, give patient instructions): Autism Spectrum Disorder (DC) Additional Instructions: Please continue to follow with community mental health and his healthcare providers further recommendations. Please continue to maintain safety for patient and staff. Please return to the Emergency Department if symptoms worsen or any other concerns. Is patient prescribed a controlled substance at d/c from ED?: No Referrals: None,Stated [REFERRING] - 1-2 days Time of Disposition: 21:09
[2022-06-16 18:50] LABS: Amphetamine Screen,Urine Not Detected (NotDetected); Barbiturate Screen,Urine Not Detected (NotDetected); Benzodiazepines Screen,Urine Detected (NotDetected); Cocaine Screen,Urine Not Detected (NotDetected); Methadone Screen, Urine Not Detected (NotDetected); Opiate Screen,Urine Not Detected (NotDetected); Oxycodone Screen, Urine Not Detected (NotDetected); Phencyclidine Screen,Urine Not Detected (NotDetected); Tricyclic Antidepressant,Urine Not Detected (NotDetected); Urn Cannabinoid Scrn Not Detected (NotDetected)
== END 2022-06-16 21:40 | disposition home or self-care (01) ==
LOC: EC 16:38
DX: F88 Other disorders of psychological development (principal); F63.81 Intermittent explosive disorder; F84.0 Autistic disorder; F90.9 Attention-deficit hyperactivity disorder, unspecified type; Z79.899 Other long term (current) drug therapy
CPT/HCPCS: 80306; 82075; 99284

== ENCOUNTER 2022-10-29 13:52 | Emergency (ER) | payer MEDICARE, OTHER ==
[2022-10-29 14:22] VITALS: RESP 18; TEMP 97.9
[2022-10-29] MEDS ORDERED: SODIUM CHLORIDE 0.9% 1,000 ML IV STA (16:07)
[2022-10-29] MEDS ORDERED: KETOROLAC 15 MG/ML 1 ML VIAL IVP STA (16:07)
[2022-10-29 16:40] LABS: Appearance,Urine Clear (Clear); Bilirubin,Urine Negative (Negative); Blood,Urine Negative (Negative); Color,Urine Yellow; Glucose,Urine (UA) Negative (Negative); Ketones,Urine Negative (Negative); Leukocyte Esterase,Urine Negative (Negative); Nitrite,Urine Negative (Negative); Protein,Urine Trace (Negative); Specific Gravity,Urine 1.022 (1.001-1.035)
[2022-10-29 16:42] LABS: Basophils % (A) 0 %; Eosinophils # (A) 0.1 k/uL (0-0.7); Eosinophils % (A) 1 %; HCT 43.5 % (39.0-53.0); HGB 15.3 gm/dL (13.0-17.5); Lymphocytes # (A) 1.6 k/uL (1.0-4.8); Lymphocytes % (A) 15 %; MCH 31.9 pg (25.0-35.0); MCHC 35.1 g/dL (31.0-37.0); MCV 90.9 fL (80.0-100.0); Mean Platelet Volume 9.6; Monocytes # (A) 0.6 k/uL (0-1.0); Monocytes % (A) 6 %; Neutrophils # (A) 8.3 k/uL (1.3-7.7); Neutrophils % (A) 77 %; Platelet Count 173 k/uL (150-450); RBC 4.78 m/uL (4.30-5.90); WBC 10.7 k/uL (3.8-10.6)
[2022-10-29 16:53] LABS: ALT 28 U/L (4-49); AST 25 U/L (17-59); African American GFR (CKD) >90 (>60 ml/min/1.73 sqM); Albumin 4.7 g/dL (3.5-5.0); Alkaline Phosphatase 59 U/L (38-126); Amylase 45 U/L (30-110); Anion Gap 10 mmol/L; Blood Urea Nitrogen 12 mg/dL (9-20); Calcium 9.6 mg/dL (8.4-10.2); Carbon Dioxide 28 mmol/L (22-30); Chloride 104 mmol/L (98-107); Glucose 108 mg/dL (74-99); Lipase 88 U/L (23-300); Non-African American GFR(CKD) >90 (>60 ml/min/1.73 sqM); Potassium 4.2 mmol/L (3.5-5.1); Sodium 142 mmol/L (137-145); Total Bilirubin 0.5 mg/dL (0.2-1.3); Total Protein 7.8 g/dL (6.3-8.2)
[2022-10-29 17:11] LABS: Partial Thromboplastin Time 26.1 sec (22.0-30.0); Prothrombin Time 10.2 sec (9.0-12.0)
--- NOTE | 2022-10-29 17:59 | CT ---
EXAMINATION TYPE: CT abdomen pelvis w con DATE OF EXAM: 10/29/2022 COMPARISON: None HISTORY: Concern for abscess under umbilical area, abdominal pain. CT DLP: 1224.1 mGycm, Automated Exposure Control for Dose Reduction was Utilized. CONTRAST: CT scan of the abdomen and pelvis is performed with oral and with IV Contrast, patient inje cted with 100 mL of Isovue 300. FINDINGS: LUNG BASES: No acute process. ANTERIOR ABDOMINAL WALL: In the immediate subcutaneous position at the umbilicus is a 2 cm AP x 1.5 c m x 1.5 cm focal fluid collection limited to the subcutaneous adipose compartment of the umbilicus. T here is circumferentially surrounding edematous reticulation. * No soft tissue emphysema. * No other focal fluid collections. * The process does not extend posterior to the transversalis fascia/retroperitoneum. LIVER/GB: No significant abnormality is appreciated. PANCREAS: No significant abnormality is seen. SPLEEN: No significant abnormality is seen. ADRENALS: No significant abnormality is seen. KIDNEYS: No significant abnormality is seen. BOWEL: No significant abnormality is seen. Mild excessive colonic stool volume. PROSTATE/SEMINAL VESICLES: No gross abnormality seen. LYMPH NODES: No greater than 1cm abdominal or pelvic lymph nodes are appreciated. OSSEOUS STRUCTURES: No significant abnormality is seen. OTHER: No acute vascular findings. IMPRESSION: Umbilical fluid collection consistent with small subcutaneous abscess, measuring 2 x 1.5 x 1.5 cm.
[2022-10-29] MEDS ORDERED: SULFAMETHOX-TMP 800-160MG 1 EACH TAB PO STA (18:10)
[2022-10-29] MEDS ORDERED: CEPHALEXIN 500 MG CAP PO STA (18:10)
--- NOTE | 2022-10-29 18:28 | ED ---
General Adult HPI - General Chief complaint: Abdominal Pain Stated complaint: Abdominal infection Time Seen by Provider: 10/29/22 16:07 Source: patient, RN notes reviewed, old records reviewed Mode of arrival: ambulatory Limitations: no limitations - History of Present Illness Initial comments: Patient is a 32-year-old male with past medical history remarkable for anger issues, autism, seizure disorder who presents emergency Department complaining of abdominal discomfort. 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 They stated that they took him to an urgent care today to be evaluated over concern for an infection of his belly button. Patient does have erythema as well as some discharge from his belly button. They also noticed possibly an abscess beneath the belly button. Urgent care gave him an injection of Rocephin, and then discharged him to have him follow-up in the emergency department. He has no fevers or chills. Has been acting normally per his [facility]. He denies any abdominal pain, nausea, vomiting, diarrhea. Denies constipation. Denies any other acute complaints at this time. Presents for further evaluation of the concern for skin infection. - Related Data Home Medications Medication Instructions Recorded Confirmed LORazepam [Ativan] 1 mg PO QID@08,12,1430,02/23/17 06/16/22 Divalproex ER [Depakote ER] 2,000 mg PO HS@199902/03/19 06/16/22 Ergocalciferol (Vitamin D2) 50,000 unit PO MO 02/03/19 06/16/22 [Vitamin D2] Clindamycin Topical Soln 1 applic TOPICAL DAILY@0804/19/19 06/16/22 [Cleocin-T Topical Soln] Metoprolol Succinate [Toprol XL] 25 mg PO DAILY@1600 04/19/19 06/16/22 Benzoyl Peroxide 10% Wash 1 applic TOPICAL DAILY@79906/16/22 06/16/22 Dicyclomine [Bentyl] 10 mg PO TID@0800,1200,199906/16/22 06/16/22 Levothyroxine Sodium [Synthroid] 50 mcg PO DAILY@0606/16/22 06/16/22 [place] Carbonate 900 mg PO DAILY@79906/16/22 06/16/22 Omeprazole 40 mg PO DAILY@79906/16/2222 Tretinoin 0.1% Cream 1 applic TOPICAL HS@199906/16/22 06/16/22 cloZAPine [Clozaril] 100 mg PO BID@0800,1200 06/16/22 06/16/22 cloZAPine [Clozaril] 300 mg PO HS@199906/16/22 06/16/22 fluPHENAZine [Prolixin 5MG] 5 mg PO BID@0800,1200 06/16/22 06/16/22 fluvoxaMINE MALEATE 50 mg PO DAILY@0800 06/16/22 06/16/22 hydrOXYzine pamoate 50 mg PO Q4H PRN 06/16/22 06/16/22 Previous Rx's Medication Instructions Recorded Cephalexin [Keflex] 500 mg PO Q12HR 7 Days #14 cap 10/29/22 Sulfamethox-Tmp 800-160Mg [Bactrim 1 tab PO Q12HR 7 Days #14 tab 10/29/22 DS 800-160 mg] Allergies Allergy/AdvReac Type Severity Reaction Status Date / Time No Known Allergies Allergy Verified 10/29/22 14:18 Review of Systems ROS Statement: Those systems with pertinent positive or pertinent negative responses have been documented in the HPI. Review of Systems: CONST: Denies fever EYES: Denies blurry vision ENT: Denies nasal congestion C/V: Denies Chest pain RESP: Denies shortness of breath GI: Denies abdominal pain : Denies dysuria SKIN: Endorses skin infection of the bellybutton MSK: Denies joint pain. NEURO: Denies headache ROS Other: All systems not noted in ROS Statement are negative. Past Medical History Past Medical History: Seizure Disorder Additional Past Medical History / Comment(s): anger issues, autistic, explosive disorder, mental retardation, Low heart rate with halter monitor 02/03/2019 History of Any Multi-Drug Resistant Organisms: None Reported Past Surgical History: No Surgical Hx Reported Past Anesthesia/Blood Transfusion Reactions: No Reported Reaction Past Psychological History: ADD/ADHD Smoking Status: Never smoker Past Alcohol Use History: None Reported Past Drug Use History: None Reported - Past Family History Mother Additional Family Medical History / Comment(s): Patient states mother is 44 years old and alive. Patient also has 1 brother and 1 sister which she state are healthy. General Exam - General Exam Comments Initial Comments: General: Appears in no acute distress. HEAD: Normal with no signs of head trauma. EYES: PERRLA, EOMI, conjunctiva normal, no discharge. ENT: Hearing grossly intact, normal oropharynx. RESPIRATORY: Clear breath sounds bilaterally. No wheezes, rales, or rhonchi. C/V: Regular rate and rhythm. S1 and S2 auscultated, no edema, peripheral pulses 2+ and intact throughout ABD: Abd is soft, nontender, nondistended. No guarding. No peritoneal signs. EXT: Normal range of motion, no obvious deformity SKIN: Patient's umbilicus has erythema, as well as what appears to be an open wound that is oozing a purulent material. Possible fluctuance palpated beneath it. Mild surrounding erythema. NEURO: Alert and oriented. At his baseline. Limitations: no limitations Course Vital Signs 10/29/22 10/29/22 14:19 18:46 Temperature 97.9 F Pulse Rate 118 H 107 H Respiratory 18 18 Rate Blood Pressure 144/82 160/93 O2 Sat by Pulse 100 100 Oximetry Medical Decision Making - Medical Decision Making The patient's presentation and physical exam, I'm concerned for possible cellu litis for the patient. Cannot rule out abscess. We will obtain a CT abdomen and pelvis as well as basic labs. Patient and [facility] staff were in agreement with this plan. He'll be given IM Toradol for pain control as well as a 1 L fluid bolus. Vital signs within acceptable limits. Laboratory studies are remarkable for a mild leukocytosis of 10.7. The remainder of the labs are within acceptable limits including lactic acid within normal limits. CT abdomen and pelvis reveals a small abscess located beneath the umbilicus. It measures approximately 2 x 1.5 cm. No intra-abdominal process. I updated the patient as well as [facility] home staff. As home. As the wound is open and draining, it does not require aspiration at this time. They were in agreement this plan. He will be started on Bactrim and Keflex. Strict return precautions were discussed. Discussed keeping cleaned as well as covered. They were in agreement this plan. I will provide the patient with a prescription for Bactrim and Keflex. I instructed the patient to follow up with their PCP in the next 1-3 days. I explained that the patient should return to the emergency department if they experience any worsening symptoms. Strict return precautions were discussed with the patient. The patient expressed understanding of these instructions. I answered all questions that the patient had. The patient was discharged home in good condition with their prescriptions and follow up information. Was pt. sent in by a medical professional or institution (, [facility], [facility], urgent care, hospital, or [place] health care facility...) When possible be specific @ -Yes, urgent care sent for further evaluation of abscess, skin infection Did you speak to anyone other than the patient for history (EMS, parent, family, police, friend...)? What history was obtained from this source @ -Yes, spoke with [facility] home staff who wishes for the patient to be further ev aluated for cellulitis versus abscess. Did you review nursing and triage notes (agree or disagree)? Why? @ -I reviewed and agree with nursing and triage notes Were old charts reviewed (outside hosp., previous admission, EMS record, old EKG, old radiological studies, urgent care reports/EKG's, [place] health care facility records)? Report findings @ -No old charts were reviewed Differential Diagnosis (chest pain, altered mental status, abdominal pain women, abdominal pain men, vaginal bleeding, weakness, fever, dyspnea, syncope, headache, dizziness, GI bleed, back pain, seizure, CVA, palpatations, mental health)? @ -Cellulitis, abscess, skin wound, intra-abdominal infection, this list is not all inclusive. EKG interpreted by me (3pts min.). @ -None done X-rays interpreted by me (1pt min.). @ -None done CT interpreted by me (1pt min.). @ -CT abdomen and pelvis revealed the small superficial skin abscess near the umbilicus. U/S interpreted by me (1pt. min.). @ -None done What testing was considered but not performed or refused? (CT, X-rays, U/S, labs)? Why? @ -None What meds were considered but not given or refused? Why? @ -None Did you discuss the management of the patient with other professionals (professionals i.e. PATRICIO Rodriguez, [facility], lab, RT, psych nurse, social work msw, chief of staff doctor, teacher, correctional officer chief, correctional case manager)? Give summary @ -No Was smoking cessation discussed for >3mins.? @ -No Was critical care preformed (if so, how long)? @ -No Were there social determinants of health that impacted care today? How? (Homelessness, low income, unemployed, alcoholism, drug addiction, transportation, low edu. Level, literacy, decrease access to med. care, prison, rehab)? @ -Low education level, history of autism which decreases his understanding and ability to convey his history. Was there de-escalation of care discussed even if they declined (Discuss DNR or withdrawal of care, Hospice)? DNR status @ -No What co-morbidities impacted this encounter? (DM, HTN, Smoking, COPD, CAD, Cancer, CVA, ARF, Chemo, Hep., AIDS, mental health diagnosis, sleep apnea, morbid obesity)? @ -None Was patient admitted / discharged? Hospital course, mention meds given and route, prescriptions, significant lab abnormalities, going to OR and other pertinent info. @ -Discharged home. See above for emergency Department course. Undiagnosed new problem with uncertain prognosis? @ -No Drug Therapy requiring intensive monitoring for toxicity (Heparin, Nitro, Insulin, Cardizem)? @ -No Were any procedures done? @ -No Diagnosis/symptom? @ -Cellulitis Chronic, or Acute on Chronic? @ -Acute Uncomplicated (without systemic symptoms) or Complicated (systemic symptoms)? @ -Uncomplicated Side effects of treatment? @ -No Exacerbation, Progression, or Severe Exacerbation? @ -No Poses a threat to life or bodily function? How? (Chest pain, [place], [place], pneumonia, PE, COPD, DKA, ARF, appy, cholecystitis, CVA, Diverticulitis, Homicidal, Suicidal, threat to staff... and all critical care pts) @ -No Diagnosis/symptom? @ -Superficial abscess Acute, or Chronic, or Acute on Chronic? @ -Acute Uncomplicated (without systemic symptoms) or Complicated (systemic symptoms)? @ -Uncomplicated Side effects of treatment? @ -none Exacerbation, Progression, or Severe Exacerbation] @ -no Poses a threat to life or bodily function? @ -no - Lab Data Result diagrams: 10/29/22 16:14 10/29/22 16:14 Lab Results 10/29/22 10/29/22 10/29/22 Range/Units 16:14 16:14 16:14 WBC 10.7 H (3.8-10.6) k/uL RBC 4.78 (4.30-5.90) m/uL Hgb 15.3 (13.0-17.5) gm/dL Hct 43.5 (39.0-53.0) % MCV 90.9 (80.0-100.0) fL MCH 31.9 (25.0-35.0) pg MCHC 35.1 (31.0-37.0) g/dL RDW 12.0 (11.5-15.5) % Plt Count 173 (150-450) k/uL MPV 9.6 Neutrophils % 77 % Lymphocytes % 15 % Monocytes % 6 % Eosinophils % 1 % Basophils % 0 % Neutrophils # 8.3 H (1.3-7.7) k/uL Lymphocytes # 1.6 (1.0-4.8) k/uL Monocytes # 0.6 (0-1.0) k/uL Eosinophils # 0.1 (0-0.7) k/uL Basophils # 0.0 (0-0.2) k/uL PT (9.0-12.0) sec INR (<1.2) APTT (22.0-30.0) sec Sodium 142 (137-145) mmol/L Potassium 4.2 (3.5-5.1) mmol/L Chloride 104 (98-107) mmol/L Carbon Dioxide 28 (22-30) mmol/L Anion Gap 10 mmol/L BUN 12 (9-20) mg/dL Creatinine 0.66 (0.66-1.25) mg/dL Est GFR (CKD-EPI)AfAm >90 (>60 ml/min/1.73 sqM) Est GFR (CKD-EPI)NonAf >90 (>60 ml/min/1.73 sqM) Glucose 108 H (74-99) mg/dL Plasma Lactic Acid Unruly (0.7-2.0) mmol/L Calcium 9.6 (8.4-10.2) mg/dL Total Bilirubin 0.5 (0.2-1.3) mg/dL AST 25 (17-59) U/L ALT 28 (4-49) U/L Alkaline Phosphatase 59 (38-126) U/L Total Protein 7.8 (6.3-8.2) g/dL Albumin 4.7 (3.5-5.0) g/dL Amylase 45 (30-110) U/L Lipase 88 (23-300) U/L Urine Color Yellow Urine Appearance Clear (Clear) Urine pH 7.0 (5.0-8.0) Ur Specific [place] 1.022 (1.001-1.035) Urine Protein Trace H (Negative) Urine Glucose (UA) Negative (Negative) Urine Ketones Negative (Negative) Urine Blood Negative (Negative) Urine Nitrite Negative (Negative) Urine Bilirubin Negative (Negative) Urine Urobilinogen 8.0 (<2.0) mg/dL Ur Leukocyte Esterase Negative (Negative) 10/29/22 10/29/22 Range/Units 16:14 16:14 WBC (3.8-10.6) k/uL RBC (4.30-5.90) m/uL Hgb (13.0-17.5) gm/dL Hct (39.0-53.0) % MCV (80.0-100.0) fL MCH (25.0-35.0) pg MCHC (31.0-37.0) g/dL RDW (11.5-15.5) % Plt Count (150-450) k/uL MPV Neutrophils % % Lymphocytes % % Monocytes % % Eosinophils % % Basophils % % Neutrophils # (1.3-7.7) k/uL Lymphocytes # (1.0-4.8) k/uL Monocytes # (0-1.0) k/uL Eosinophils # (0-0.7) k/uL Basophils # (0-0.2) k/uL PT 10.2 (9.0-12.0) sec INR 1.0 (<1.2) APTT 26.1 (22.0-30.0) sec Sodium (137-145) mmol/L Potassium (3.5-5.1) mmol/L Chloride (98-107) mmol/L Carbon Dioxide (22-30) mmol/L Anion Gap mmol/L BUN (9-20) mg/dL Creatinine (0.66-1.25) mg/dL Est GFR (CKD-EPI)AfAm (>60 ml/min/1.73 sqM) Est GFR (CKD-EPI)NonAf (>60 ml/min/1.73 sqM) Glucose (74-99) mg/dL Plasma Lactic Acid Unruly 1.1 (0.7-2.0) mmol/L Calcium (8.4-10.2) mg/dL Total Bilirubin (0.2-1.3) mg/dL AST (17-59) U/L ALT (4-49) U/L Alkaline Phosphatase (38-126) U/L Total Protein (6.3-8.2) g/dL Albumin (3.5-5.0) g/dL Amylase (30-110) U/L Lipase (23-300) U/L Urine Color Urine Appearance (Clear) Urine pH (5.0-8.0) Ur Specific [place] (1.001-1.035) Urine Protein (Negative) Urine Glucose (UA) (Negative) Urine Ketones (Negative) Urine Blood (Negative) Urine Nitrite (Negative) Urine Bilirubin (Negative) Urine Urobilinogen (<2.0) mg/dL Ur Leukocyte Esterase (Negative) Disposition Clinical Impression: Abscess, Cellulitis Disposition: HOME SELF-CARE Condition: Good Instructions (If sedation given, give patient instructions): Abscess (ED) Prescriptions: Sulfamethox-Tmp 800-160Mg [Bactrim DS 800-160 mg] 1 tab PO Q12HR 7 Days #14 tab Cephalexin [Keflex] 500 mg PO Q12HR 7 Days #14 cap Is patient prescribed a controlled substance at d/c from ED?: No Referrals: Otoniel Garcia MD [Primary Care Provider] - 1-2 days Time of Disposition: 18:20
[2022-10-29 18:47] VITALS: BP 160/93; PULSE 107
== END 2022-10-29 18:47 | disposition home or self-care (01) ==
LOC: EC 13:52
DX: L03.311 Cellulitis of abdominal wall (principal); L02.211 Cutaneous abscess of abdominal wall
CPT/HCPCS: 36415; 80053; 82150; 83605; 83690; 85025; 85610; 85730; 81003; 74177; 99284; 96374; 96361 ×2; J1885; Q9967

== ENCOUNTER 2023-05-31 21:33 | Emergency (ER) | payer MEDICARE, OTHER ==
[2023-05-31] MEDS ORDERED: ONDANSETRON 4 MG/2 ML VIAL IVP STA (21:38)
[2023-05-31] MEDS ORDERED: SODIUM CHLORIDE 0.9% 1,000 ML IV STA (21:38)
[2023-05-31] MEDS ORDERED: LORazepam 2 MG/ML INJ IV STA (21:39)
[2023-05-31 21:44] LABS: Glucose,Whole Blood 137 mg/dL (70-110)
[2023-05-31 21:53] VITALS: RESP 16
--- NOTE | 2023-05-31 22:00 | CT ---
EXAMINATION TYPE: CT brain wo con for TPA CT DLP: 1364.6 mGycm, Automated exposure control for dose reduction was used. DATE OF EXAM: 05/31/2023 9:53 PM COMPARISON: None. CLINICAL INDICATION:Male, 33 years old with history of Neuro deficit, acute, stroke suspected, Neuro deficit, acute, stroke suspected TECHNIQUE: Brain: Axial CT images of the brain were obtained with coronal and sagittal reformats created and rev iewed. Contrast used: None. Oral contrast used: None. FINDINGS: Brain: Extra-axial spaces: No abnormal extra-axial fluid collections. Ventricular system: Within normal limits Cerebral parenchyma: No acute intraparenchymal hemorrhage or mass effect. The benítez-white junction is well differentiated. Cerebellum: Unremarkable. Mass effect: No evidence of midline shift. Intracranial vasculature: unremarkable Soft tissues: Normal. Calvarium/osseous structures: No depressed skull fracture. Paranasal sinuses and mastoid air cells: Mild scattered paranasal sinus disease. Visualized orbits: Orbital contents are intact. IMPRESSION: No acute intracranial process.
--- NOTE | 2023-05-31 22:00 | XR ---
EXAMINATION TYPE: XR chest 1V portable DATE OF EXAM: 05/31/2023 9:53 PM CLINICAL INDICATION:Male, 33 years old with history of altered mental status; [facility] COMPARISON: 02/03/2019 TECHNIQUE: XR chest 1V portable Frontal view of the chest. FINDINGS: Lungs/Pleura: Low lung volumes are present. There is no evidence of pleural effusion, focal consolida tion, or pneumothorax. Pulmonary vascularity: Unremarkable. Heart/mediastinum: Cardiomediastinal silhouette is unremarkable. Musculoskeletal: No acute osseous pathology. IMPRESSION: No acute cardiopulmonary disease/process.
[2023-05-31 22:04] LABS: Basophils % (A) 0 %; Eosinophils # (A) 0.1 k/uL (0-0.7); Eosinophils % (A) 1 %; HCT 38.5 % (39.0-53.0); HGB 13.6 gm/dL (13.0-17.5); Lymphocytes # (A) 2.1 k/uL (1.0-4.8); Lymphocytes % (A) 27 %; MCH 32.7 pg (25.0-35.0); MCHC 35.4 g/dL (31.0-37.0); MCV 92.3 fL (80.0-100.0); Mean Platelet Volume 9.6; Monocytes # (A) 0.6 k/uL (0-1.0); Monocytes % (A) 8 %; Neutrophils # (A) 4.9 k/uL (1.3-7.7); Neutrophils % (A) 64 %; Platelet Count 164 k/uL (150-450); RBC 4.17 m/uL (4.30-5.90); RDW 11.6 % (11.5-15.5); WBC 7.8 k/uL (3.8-10.6)
[2023-05-31] MEDS ORDERED: levETIRAcetam IV 500 MG/5 ML VIAL IVP STA (22:04)
--- NOTE | 2023-05-31 22:04 | ED ---
Altered Mental Status HPI - General Chief Complaint: Altered Mental Status Stated Complaint: STROKE Time Seen by Provider: 05/31/23 21:35 Source: EMS, RN notes reviewed, old records reviewed Mode of arrival: EMS Limitations: altered mental status - History of Present Illness Initial Comments: This is a 33-year-old male presenting with altered mental status decreased responsiveness. Symptoms greater than 5 hours now. History of seizures, although I coming from [facility] today. Patient here in the ER is unable to answer questions or follow significant infections but does appear to have issue with right arm right-sided face with uncontrollable tremor and tic. Patient does appear to be alert, responsive and is able to move both legs and his left arm. Patient did take all medications as prescribed denies recent trauma illness recent fevers MD Complaint: altered mental status, decreased responsiveness -: hour(s) (5) Severity: mild Consistency of Symptoms: getting worse Context: history of similar presentation, seizure disorder Associated Symptoms: denies other symptoms Treatments Prior to Arrival: IV fluid, oxygen - Related Data Home Medications Medication Instructions Recorded Confirmed LORazepam [Ativan] 1 mg PO QID@08,12,1430,20 02/23/17 06/06/23 Clindamycin Topical Soln 1 applic TOPICAL DAILY@0804/19/19 06/06/23 [Cleocin-T Topical Soln] Metoprolol Succinate [Toprol XL] 25 mg PO DAILY@1600 04/19/19 06/06/23 Benzoyl Peroxide 10% Wash 1 applic TOPICAL DAILY@79906/16/22 06/06/23 Dicyclomine [Bentyl] 10 mg PO TID@0800,1200,199906/16/22 06/06/23 Levothyroxine Sodium [Synthroid] 50 mcg PO DAILY@59906/16/22 06/06/23 [place] Carbonate 900 mg PO DAILY@79906/16/22 06/06/23 Omeprazole 40 mg PO DAILY@59906/16/22 06/06/23 cloZAPine [Clozaril] 100 mg PO BID@0800,119906/16/22 06/06/23 cloZAPine [Clozaril] 300 mg PO HS@199906/16/22 06/06/23 fluPHENAZine [Prolixin] 5 mg PO BID@0800,119906/16/22 06/06/23 fluvoxaMINE MALEATE 50 mg PO DAILY@0800 06/16/22 06/06/23 hydrOXYzine pamoate 50 mg PO Q4H PRN 06/16/22 06/06/23 Divalproex Sodium [Depakote] 2,000 mg PO HS@199905/31/23 06/06/23 Ergocalciferol [Vitamin D2 (1250 1,250 mcg PO MO@0800 05/31/23 06/06/23 Mcg = 81677 Iu)] Glycopyrrolate [Robinul Forte] 2 mg PO HS@199905/31/23 06/06/23 Optive Gel Eye Drops 1 drop BOTH EYES HS@199905/31/23 06/06/23 Tretinoin [Retin-A 0.1%] 1 applic TOPICAL HS@199905/31/23 06/06/23 cloNIDine HCL 0.2 mg PO TID@0800,1200,1600 05/31/23 06/06/23 Allergies Allergy/AdvReac Type Severity Reaction Status Date / Time No Known Allergies Allergy Verified 06/06/23 12:39 Review of Systems ROS Statement: Those systems with pertinent positive or pertinent negative responses have been documented in the HPI. ROS Other: All systems not noted in ROS Statement are negative. Past Medical History Past Medical History: Seizure Disorder Additional Past Medical History / Comment(s): anger issues, autistic, explosive disorder, mental retardation, Low heart rate with halter monitor 02/03/2019 History of Any Multi-Drug Resistant Organisms: None Reported Past Surgical History: No Surgical Hx Reported Past Anesthesia/Blood Transfusion Reactions: No Reported Reaction Past Psychological History: ADD/ADHD Smoking Status: Never smoker Past Alcohol Use History: None Reported Past Drug Use History: None Reported - Past Family History Mother Additional Family Medical History / Comment(s): Patient states mother is 44 years old and alive. Patient also has 1 brother and 1 sister which she state are healthy. General Exam - General Exam Comments Initial Comments: NIH 7 Limitations: altered mental status, physical limitation General appearance: alert, in no apparent distress, anxious, in distress Head exam: Present: atraumatic, normocephalic, normal inspection Eye exam: Present: normal appearance, PERRL, EOMI. Absent: scleral icterus, conjunctival injection, periorbital swelling ENT exam: Present: normal exam, mucous membranes moist Neck exam: Present: normal inspection. Absent: tenderness, meningismus, lymphadenopathy Respiratory exam: Present: normal lung sounds bilaterally. Absent: respiratory distress, wheezes, rales, rhonchi, stridor Cardiovascular Exam: Present: regular rate, normal rhythm, normal heart sounds. Absent: systolic murmur, diastolic murmur, rubs, gallop, clicks GI/Abdominal exam: Present: soft, normal bowel sounds. Absent: distended, tenderness, guarding, rebound, rigid Extremities exam: Present: normal inspection, full ROM, normal capillary refill. Absent: tenderness, pedal edema, joint swelling, calf tenderness Back exam: Present: normal inspection Neurological exam: Present: alert, oriented X3, CN II-XII intact Psychiatric exam: Present: normal affect, normal mood Skin exam: Present: warm, dry, intact, normal color. Absent: rash Course Vital Signs 05/31/23 05/31/23 05/31/23 21:35 21:53 22:08 Temperature 97.9 F Pulse Rate 97 88 81 Respiratory 16 16 16 Rate Blood Pressure 149/96 153/114 O2 Sat by Pulse 100 100 100 Oximetry 05/31/23 05/31/23 09 22:23 22:38 00:23 Temperature Pulse Rate 76 73 79 Respiratory 16 16 16 Rate Blood Pressure 131/86 131/96 141/83 O2 Sat by Pulse 100 99 100 Oximetry 06/01/23 00:54 Temperature 97.7 F Pulse Rate Respiratory Rate Blood Pressure O2 Sat by Pulse Oximetry - Reevaluation(s) Reevaluation #1: 05/31/23 22:34 Medical records reviewed 05/31/23 22:34 Code stroke paged prehospital Patient was not a TPA candidate secondary symptom onset greater than 5 hours Reevaluation #2: 05/31/23 23:28 Patient has returned to baseline, able to assess for fluid and able to eat and drink without difficulty Reevaluation #3: 05/31/23 23:28 Patient informed of results caregivers informed results and questions answered Reevaluation #4: 05/31/23 22:56 Was pt. sent in by a medical professional or institution (, PA, INDOOR LANDSCAPER/GARDENER, urgent care, hospital, or [facility]...) When possible be specific @ -no Did you speak to anyone other than the patient for history (EMS, parent, family, police, friend...)? What history was obtained from this source @ -no Did you review nursing and triage notes (agree or disagree)? Why? @ -agree Are old charts reviewed (outside hosp., previous admission, EMS record, old EKG, old radiological studies, urgent care reports/EKG's, [facility] records)? Report findings @ -yes Differential Diagnosis (chest pain, altered mental status, abdominal pain women, abdominal pain men, vaginal bleeding, weakness, fever, dyspnea, syncope, headache, dizziness, GI bleed, back pain, seizure, CVA, palpatations, mental health, musculoskeletal)? @ -prior EKG interpreted by me (3pts min.). @ -yes X-rays interpreted by me (1pt min.). @ -yes CT interpreted by me (1pt min.). @ -yes U/S interpreted by me (1pt. min.). @ -no What testing was considered but not performed or refused? (CT, X-rays, U/S, labs)? Why? @ -none What meds were considered but not given or refused? Why? @ -none Did you discuss the management of the patient with other professionals (professionals i.e. , PA, INDOOR LANDSCAPER/GARDENER, lab, RT, psych nurse, director social welfare, asbestos removal worker, teacher, public health officer, bilingual patient support caseworker)? Give summary @ -no Was smoking cessation discussed for >3mins.? @ -no Was critical care preformed (if so, how long)? @ -yes31 Were there social determinants of health that impacted care today? How? (Homelessness, low income, unemployed, alcoholism, drug addiction, transportation, low edu. Level, literacy, decrease access to med. care, correction, rehab)? @ -none Was there de-escalation of care discussed even if they declined (Discuss DNR or withdrawal of care, Hospice)? DNR status @ -no What co-morbidities impacted this encounter? (DM, HTN, Smoking, COPD, CAD, Cancer, CVA, ARF, Chemo, Hep., AIDS, mental health diagnosis, sleep apnea, morb id obesity)? @ -none Was patient admitted / discharged? Hospital course, mention meds given and rou te, prescriptions, significant lab abnormalities, going to OR and other pertinent info. @ - 33 male to the emergency department for evaluation, patient came in as a code stroke with altered mental status but no evidence of neurological change on CT and CTA. Patient is not a TPA candidate, patient did appear to be having a simple partial seizure on arrival with seizure history, patient is to improving to baseline although he does have history of seizures he has never had a seizure of this manner before., Patient is refusing hospital admission and at his direction will be discharged home Discharge Undiagnosed new problem with uncertain prognosis? @ -no Drug Therapy requiring intensive monitoring for toxicity (Heparin, Nitro, Insulin, Cardizem)? @ -no Were any procedures done? @ -no Diagnosis/symptom? @ -Recurrent seizure significant postictal state Acute, or Chronic, or Acute on Chronic? @ -Acute Uncomplicated (without systemic symptoms) or Complicated (systemic symptoms)? @ -Complicated Side effects of treatment? @ -no Exacerbation, Progression, or Severe Exacerbation? @ -exacerbation Poses a threat to life or bodily function? How? (Chest pain, USA, ND, pneumonia, PE, COPD, DKA, ARF, appy, cholecystitis, CVA, Diverticulitis, Homicidal, Suicidal, threat to staff... and all critical care pts) @ -yes significant comorbidity with altered mental status and seizure with ne urological symptoms Reevaluation #5: Differential CVA Ischemic stroke, hemorrhagic stroke, brain tumor, atypical migraine, Wernicke's encephalopathy, seizure, multiple sclerosis, meningitis, encephalitis, hypoglycemia, Guillain-Naik, electrolytes disturbance, myasthenia gravis.... This is not meant to be an all-inclusive list Differential Seizure: Recurrent seizure disorder, febrile seizure, alcohol withdrawal, stimulants, meningitis, encephalitis, intercranial hemorrhage, intracranial tumor, stroke, eclampsia, thyrotoxicosis, hypocalcemia, hyponatremia, hypernatremia, hypomagnesemia, psychogenic, this is not meant to be an all-inclusive list. - Consultations Consultation #1: Spoke with neuro interventional , will evaluate CT scans Medical Decision Making - Medical Decision Making 33 male to the emergency department for evaluation, patient came in as a code stroke with altered mental status but no evidence of neurological change on CT and CTA. Patient is not a TPA candidate, patient did appear to be having a simple partial seizure on arrival with seizure history, patient is to improving to baseline although he does have history of seizures he has never had a seizure of this manner before., Patient is refusing hospital admission and at his direction will be discharged home - Lab Data Result diagrams: 05/31/23 21:50 05/31/23 21:50 Lab Results 05/31/23 05/31/23 05/31/23 Range/Units 21:43 21:50 21:50 WBC 7.8 (3.8-10.6) k/uL RBC 4.17 L (4.30-5.90) m/uL Hgb 13.6 (13.0-17.5) gm/dL Hct 38.5 L (39.0-53.0) % MCV 92.3 (80.0-100.0) fL MCH 32.7 (25.0-35.0) pg MCHC 35.4 (31.0-37.0) g/dL RDW 11.6 (11.5-15.5) % Plt Count 164 (150-450) k/uL MPV 9.6 Neutrophils % 64 % Lymphocytes % 27 % Monocytes % 8 % Eosinophils % 1 % Basophils % 0 % Neutrophils # 4.9 (1.3-7.7) k/uL Lymphocytes # 2.1 (1.0-4.8) k/uL Monocytes # 0.6 (0-1.0) k/uL Eosinophils # 0.1 (0-0.7) k/uL Basophils # 0.0 (0-0.2) k/uL PT 11.4 (9.0-12.0) sec INR 1.1 (<1.2) APTT 25.9 (22.0-30.0) sec Sodium (137-145) mmol/L Potassium (3.5-5.1) mmol/L Chloride (98-107) mmol/L Carbon Dioxide (22-30) mmol/L Anion Gap mmol/L BUN (9-20) mg/dL Creatinine (0.66-1.25) mg/dL Est GFR (CKD-EPI)AfAm (>60 ml/min/1.73 sqM) Est GFR (CKD-EPI)NonAf (>60 ml/min/1.73 sqM) Glucose (74-99) mg/dL POC Glucose (mg/dL) 137 H (70-110) mg/dL POC Glu Specialty Development Consultant ID Johnnie Hdz Calcium (8.4-10.2) mg/dL Magnesium (1.6-2.3) mg/dL Total Bilirubin (0.2-1.3) mg/dL AST (17-59) U/L ALT (4-49) U/L Alkaline Phosphatase (38-126) U/L Creatine Kinase (55-170) U/L Troponin I (0.000-0.034) ng/mL Total Protein (6.3-8.2) g/dL Albumin (3.5-5.0) g/dL [place] mmol/L 05/31/23 05/31/23 05/31/23 Range/Units 21:50 21:50 21:50 WBC (3.8-10.6) k/uL RBC (4.30-5.90) m/uL Hgb (13.0-17.5) gm/dL Hct (39.0-53.0) % MCV (80.0-100.0) fL MCH (25.0-35.0) pg MCHC (31.0-37.0) g/dL RDW (11.5-15.5) % Plt Count (150-450) k/uL MPV Neutrophils % % Lymphocytes % % Monocytes % % Eosinophils % % Basophils % % Neutrophils # (1.3-7.7) k/uL Lymphocytes # (1.0-4.8) k/uL Monocytes # (0-1.0) k/uL Eosinophils # (0-0.7) k/uL Basophils # (0-0.2) k/uL PT (9.0-12.0) sec INR (<1.2) APTT (22.0-30.0) sec Sodium 127 L (137-145) mmol/L Potassium 3.5 (3.5-5.1) mmol/L Chloride 93 L (98-107) mmol/L Carbon Dioxide 22 (22-30) mmol/L Anion Gap 12 mmol/L BUN 8 L (9-20) mg/dL Creatinine 0.65 L (0.66-1.25) mg/dL Est GFR (CKD-EPI)AfAm >90 (>60 ml/min/1.73 sqM) Est GFR (CKD-EPI)NonAf >90 (>60 ml/min/1.73 sqM) Glucose 127 H (74-99) mg/dL POC Glucose (mg/dL) (70-110) mg/dL POC Glu Specialty Development Consultant ID Calcium 8.9 (8.4-10.2) mg/dL Magnesium 1.4 L (1.6-2.3) mg/dL Total Bilirubin 0.4 (0.2-1.3) mg/dL AST 28 (17-59) U/L ALT 38 (4-49) U/L Alkaline Phosphatase 50 (38-126) U/L Creatine Kinase 218 H (55-170) U/L Troponin I <0.012 (0.000-0.034) ng/mL Total Protein 7.1 (6.3-8.2) g/dL Albumin 4.5 (3.5-5.0) g/dL [place] 0.5 mmol/L - EKG Data -: EKG Interpreted by Me (EKG sinus 86 UT 211 QRS 106 QTC 418) - Radiology Data Radiology results: report reviewed (CT brain CT angioma head neck negative for acute disease, chest x-rays negative for acute disease interpreted by me), image reviewed Critical Care Time Critical Care Time: Yes Total Critical Care Time: 31 Disposition Clinical Impression: Altered mental status, Acute psychosis, Autism spectrum disorder, Seizure, Simple partial seizure Disposition: HOME SELF-CARE Condition: Fair Instructions (If sedation given, give patient instructions): Seizure/Epilepsy Discharge Instructions & Follow-Up, Altered Mental Status (ED) Is patient prescribed a controlled substance at d/c from ED?: No Referrals: None,Stated [REFERRING] - 1-2 days Time of Disposition: 23:30
[2023-05-31 22:13] LABS: INR 1.1 (<1.2); Partial Thromboplastin Time 25.9 sec (22.0-30.0); Prothrombin Time 11.4 sec (9.0-12.0)
[2023-05-31 22:14] LABS: ALT 38 U/L (4-49); AST 28 U/L (17-59); African American GFR (CKD) >90 (>60 ml/min/1.73 sqM); Albumin 4.5 g/dL (3.5-5.0); Alkaline Phosphatase 50 U/L (38-126); Anion Gap 12 mmol/L; Blood Urea Nitrogen 8 mg/dL (9-20); Calcium 8.9 mg/dL (8.4-10.2); Carbon Dioxide 22 mmol/L (22-30); Chloride 93 mmol/L (98-107); Creatine Kinase 218 U/L (55-170); Glucose 127 mg/dL (74-99); Non-African American GFR(CKD) >90 (>60 ml/min/1.73 sqM); Potassium 3.5 mmol/L (3.5-5.1); Sodium 127 mmol/L (137-145); Total Bilirubin 0.4 mg/dL (0.2-1.3); Total Protein 7.1 g/dL (6.3-8.2)
--- NOTE | 2023-05-31 22:28 | CT ---
EXAM: CT Angiography Head With Intravenous Contrast CLINICAL HISTORY: ITS.REASON CT Reason: Neuro deficit, acute, stroke suspected TECHNIQUE: Axial computed tomographic angiography images of the head with intravenous contrast. CTDI is 2.4 mGy and DLP is 19.2 mGy-cm. This CT exam was performed using one or more of the following dose reduction techniques: automated exposure control, adjustment of the mA and/or kV according to patient size, and/or use of iterative reconstruction technique. MIP reconstructed images were created and reviewed. 65 ML of IV contrast is given. Moderate motion artifact and venous contamination. COMPARISON: None. FINDINGS: Right internal carotid artery: Patent. Right anterior cerebral artery: Patent. Right middle cerebral artery: Patent. Right posterior cerebral artery: Patent. Right vertebral artery: Patent. Left internal carotid artery: Patent. Left anterior cerebral artery: Patent. Left middle cerebral artery: Patent. Left posterior cerebral artery: Patent. Left vertebral artery: Patent. Basilar artery: Patent. Other: IMPRESSION: 1. No aneurysm or large vessel occlusion. 2. Moderate motion artifact limits evaluation. EXAM: CT Angiography Neck With Intravenous Contrast CLINICAL HISTORY: ITS. REASON CT Reason: Neuro deficit, acute, stroke suspected TECHNIQUE: Routine carotid CT angiography protocol was performed with intravenous contrast. NASCET criteria using the distal ICAs for comparison were used for evaluation of stenoses. CTDI is 2.4 mGy and DLP is 650.7 mGy-cm. This CT exam was performed using one or more of the following dose reduction techniques: automated exposure control, adjustment of the mA and/or kV according to patient size, and/or use of iterative reconstruction technique. MIP reconstructed images were created and reviewed. 65 ML of IV contrast is given. COMPARISON: None. FINDINGS: Right common carotid artery: Patent. Right internal carotid artery: Patent. Right vertebral artery: Patent. Left common carotid artery: Patent. Left internal carotid artery: Patent. Left vertebral artery: Patent. Other: Fluid level in the proximal esophagus, nonspecific, possible gastroesophageal reflux, or ingested contents. Patient at risk for aspiration pneumonia. The lungs are not fully included. IMPRESSION: 1. No dissection, occlusion, or significant stenosis. 2. Fluid level in the esophagus is nonspecific, patient at risk for aspiration pneumonia. CAROTID STENOSIS REFERENCE USING NASCET CRITERIA: % ICA stenosis = (1 - narrowest ICA diameter/diameter of distal cervical ICA) x 100. Mild - <50% stenosis. Moderate - 50-69% stenosis. Severe - 70-94% stenosis. Near occlusion - 95-99% stenosis. Occluded - 100% stenosis.
[2023-05-31] MEDS: LORazepam 2 MG/ML INJ IV STA ×2 (23:35→23:50)
[2023-05-31] MEDS ORDERED: SODIUM CHLORIDE 0.9% 500 ML 500 ML IV STA (23:40)
[2023-05-31] MEDS ORDERED: NALOXONE 0.4 MG/ML 1 ML VIAL IV PRN (23:40)
[2023-05-31] MEDS ORDERED: MORPHINE SULFATE 4 MG/ML SYRINGE IV PRN (23:40)
[2023-05-31] MEDS ORDERED: ONDANSETRON 4 MG/2 ML VIAL IVP PRN (23:40)
[2023-05-31] MEDS ORDERED: SODIUM CHLORIDE 0.9% 1,000 ML IV SCH (23:45)
[2023-05-31 23:48] LABS: Lithium 0.5 mmol/L; Magnesium 1.4 mg/dL (1.6-2.3)
[2023-06-01 00:47] VITALS: BP 141/83; PULSE 79
[2023-06-01 00:55] VITALS: TEMP 97.7
== END 2023-06-01 00:55 | disposition home or self-care (01) ==
LOC: EC 21:33 → UNDOADMOB 23:41 → 6NMEDSUR 23:41 → UNDODISOB 06-01 00:54
DX: F23 Brief psychotic disorder (principal); F84.0 Autistic disorder; G40.909 Epilepsy, unspecified, not intractable, without status epilepticus; R41.82 Altered mental status, unspecified; Z79.899 Other long term (current) drug therapy
CPT/HCPCS: 99291 ×2; 96374 ×2; 96375 ×3; 96376 ×2; 96361 ×4; 36415; 93005; 80053; 82550; 80178; 83735; 84484; 85025; 85610; 85730; 71045; 70496; 70450; 70498; J2060; J2405; J1953; Q9967

== ENCOUNTER 2023-06-05 20:06 | Observation (INO) | payer MEDICARE, OTHER ==
--- NOTE | 2023-06-05 21:34 | ED ---
Dizziness HPI - General Source: patient, EMS Mode of arrival: EMS Limitations: no limitations <Jimmy Subramanian - Last Filed: 06/05/23 23:50> <Marycruz Payne - Last Filed: 06/07/23 09:31> - General Chief Complaint: Dizziness Stated Complaint: Dizziness Time Seen by Provider: 06/05/23 20:51 - History of Present Illness Initial Comments: A 33-year-old male past medical history significant for autism spectrum disorder presents to ED with a chief complaint of chills. Patient states for the past few days has had increased chills and "shakiness". However, patient denies any abdominal pain, urinary symptoms, changes in bowel habits, cough, congestion, shortness of breath. No other complaints. Per caregiver, reports that was seen here previously due to a seizure. Since then, is that the patient has had continued symptoms of intermittent headache and slurred speech however not worse than discharge on 05/31/23. Has been unable to schedule follow-up with neurology since then. (Jimmy Subramanian) - Related Data Home Medications Medication Instructions Recorded Confirmed LORazepam [Ativan] 1 mg PO QID@08,12,1430,20 02/23/17 06/06/23 Clindamycin Topical Soln 1 applic TOPICAL DAILY@0804/19/19 06/06/23 [Cleocin-T Topical Soln] Metoprolol Succinate [Toprol XL] 25 mg PO DAILY@1600 04/19/19 06/06/23 Benzoyl Peroxide 10% Wash 1 applic TOPICAL DAILY@0806/16/22 06/06/23 Dicyclomine [Bentyl] 10 mg PO TID@0800,1200,199906/16/22 06/06/23 Levothyroxine Sodium [Synthroid] 50 mcg PO DAILY@59906/16/22 06/06/23 [place] Carbonate 900 mg PO DAILY@79906/16/22 06/06/23 Omeprazole 40 mg PO DAILY@59906/16/22 06/06/23 cloZAPine [Clozaril] 100 mg PO BID@0800,1200 06/16/22 06/06/23 cloZAPine [Clozaril] 300 mg PO HS@199906/16/22 06/06/23 fluPHENAZine [Prolixin] 5 mg PO BID@0800,1200 06/16/22 06/06/23 fluvoxaMINE MALEATE 50 mg PO DAILY@0800 06/16/22 06/06/23 hydrOXYzine pamoate 50 mg PO Q4H PRN 06/16/22 06/06/23 Divalproex Sodium [Depakote] 2,000 mg PO HS@199905/31/23 06/06/23 Ergocalciferol [Vitamin D2 (1250 1,250 mcg PO MO@79905/31/23 06/06/23 Mcg = 78901 Iu)] Glycopyrrolate [Robinul Forte] 2 mg PO HS@199905/31/23 06/06/23 Optive Gel Eye Drops 1 drop BOTH EYES HS@199905/31/23 06/06/23 Tretinoin [Retin-A 0.1%] 1 applic TOPICAL HS@199905/31/23 06/06/23 cloNIDine HCL 0.2 mg PO TID@0800,1200,1600 05/31/23 06/06/23 Allergies Allergy/AdvReac Type Severity Reaction Status Date / Time No Known Allergies Allergy Verified 06/06/23 12:39 Review of Systems ROS Other: All systems not noted in ROS Statement are negative. <Jimmy Subramanian - Last Filed: 06/05/23 23:50> ROS Other: All systems not noted in ROS Statement are negative. <Marycruz Payne - Last Filed: 06/07/23 09:31> ROS Statement: Those systems with pertinent positive or pertinent negative responses have been documented in the HPI. Past Medical History Past Medical History: Seizure Disorder Additional Past Medical History / Comment(s): anger issues, autistic, explosive disorder, mental retardation, Low heart rate with halter monitor 02/03/2019 History of Any Multi-Drug Resistant Organisms: None Reported Past Surgical History: No Surgical Hx Reported Past Anesthesia/Blood Transfusion Reactions: No Reported Reaction Past Psychological History: ADD/ADHD Smoking Status: Never smoker Past Alcohol Use History: None Reported Past Drug Use History: None Reported - Past Family History Mother Additional Family Medical History / Comment(s): Patient states mother is 44 years old and alive. Patient also has 1 brother and 1 sister which she state are healthy. <Jimmy Subramanian - Last Filed: 06/05/23 23:50> General Exam Limitations: no limitations General appearance: alert, in no apparent distress, other (At baseline.) Neck exam: Present: normal inspection Respiratory exam: Present: wheezes (Expiratory wheezing bilaterally) Cardiovascular Exam: Present: regular rate, normal rhythm GI/Abdominal exam: Present: soft (No tenderness palpation. No rebound guarding or rigidity.) Neurological exam: Present: alert, oriented X3 <MoishanellJimmy - Last Filed: 06/05/23 23:50> Course Vital Signs 06/05/23 06/06/23 06/06/23 20:27 00:30 04:01 Temperature 97.2 F L 98.0 F Pulse Rate 72 80 68 Pulse Rate [ Pulse Oximetery ] Respiratory 18 20 18 Rate Blood Pressure 145/99 144/86 131/80 Blood Pressure [Right Arm] O2 Sat by Pulse 100 99 100 Oximetry 06/06/23 06/06/23 05:05 09:00 Temperature 98.1 F Pulse Rate 73 Pulse Rate [ 114 H Pulse Oximetery ] Respiratory 16 18 Rate Blood Pressure 131/80 Blood Pressure 149/76 [Right Arm] O2 Sat by Pulse 100 100 Oximetry Medical Decision Making - Lab Data Result diagrams: 06/05/23 20:58 06/05/23 20:58 - EKG Data -: EKG Interpreted by Co <MorisJimmy - Last Filed: 06/05/23 23:50> - Lab Data Result diagrams: 06/05/23 20:58 06/05/23 20:58 <Marycruz Payne - Last Filed: 06/07/23 09:31> - Medical Decision Making Was pt. sent in by a medical professional or institution (, PA, [employer], urgent care, hospital, or prison...) When possible be specific @ -No Did you speak to anyone other than the patient for history (EMS, parent, family, police, friend...)? What history was obtained from this source @ -No Did you review nursing and triage notes (agree or disagree)? Why? @ -I reviewed and agree with nursing and triage notes Were old charts reviewed (outside hosp., previous admission, EMS record, old EKG, old radiological studies, urgent care reports/EKG's, prison records)? Report findings @ -Her visit here on 05/31 reviewed. At this time, patient was discharged home in stable condition. Differential Diagnosis (chest pain, altered mental status, abdominal pain women, abdominal pain men, vaginal bleeding, weakness, fever, dyspnea, syncope, headache, dizziness, GI bleed, back pain, seizure, CVA, palpatations, mental health, musculoskeletal)? @ -Differential Fever: Pneumonia, viral URI, endocarditis, myocarditis, pericarditis, otitis, sinusitis, peritonsillar Abscess, retropharyngeal Abscess, epiglottitis, peritonitis, appendicitis, [place] cystitis, diverticulitis, hepatitis, colitis, UTI, PID, TOA, pyelonephritis, prostatitis, epididymitis, meningitis, encephalitis, pulmonary embolism, CVA, thyroid storm, pancreatitis, adrenal c risis, cavernous sinus thrombosis, this is not meant to be an all-inclusive list. EKG interpreted by me (3pts min.). @ -As above X-rays interpreted by me (1pt min.). @ -Chest x-ray shows no acute findings. CT interpreted by me (1pt min.). @ -None done U/S interpreted by me (1pt. min.). @ -None done What testing was considered but not performed or refused? (CT, X-rays, U/S, labs)? Why? @ -None What meds were considered but not given or refused? Why? @ -None Did you discuss the management of the patient with other professionals (pr ofessionals i.e. , PA, [employer], lab, RT, psych nurse, social service director, duck farmer, teacher, weapons electrical engineering officer, case liner)? Give summary @ -Discussed with Eleonora Whipple, who accepts admission to [facility] Was smoking cessation discussed for >3mins.? @ -No Was critical care preformed (if so, how long)? @ -No Were there social determinants of health that impacted care today? How? (Homelessness, low income, unemployed, alcoholism, drug addiction, transportation, low edu. Level, literacy, decrease access to med. care, [facility], rehab)? @ -No Was there de-escalation of care discussed even if they declined (Discuss DNR or withdrawal of care, Hospice)? DNR status @ -No What co-morbidities impacted this encounter? (DM, HTN, Smoking, COPD, CAD, Cancer, CVA, ARF, Chemo, Hep., AIDS, mental health diagnosis, sleep apnea, morbid obesity)? @ -Seizures, development delay Was patient admitted / discharged? Hospital course, mention meds given and route, prescriptions, significant lab abnormalities, going to OR and other pertinent info. @ -Admission 33 -year-old male presenting to the ED with complaints of dizziness and "shakiness". Additionally per caregiver notes this are 3, and difficulty ambulating. Laboratory workup largely unremarkable however lithium is toxic at 3.2. Chest x-ray shows no acute findings. Patient will be admitted for IV fluids and symptomatic control with consult to neurology. Undiagnosed new problem with uncertain prognosis? @ -No Drug Therapy requiring intensive monitoring for toxicity (Heparin, Nitro, Insulin, Cardizem)? @ -No Were any procedures done? @ -No Diagnosis/symptom? @ -[place] toxicity Acute, or Chronic, or Acute on Chronic? @ -Acute Uncomplicated (without systemic symptoms) or Complicated (systemic symptoms)? @ -Uncomplicated Side effects of treatment? @ -No Exacerbation, Progression, or Severe Exacerbation? @ -No Poses a threat to life or bodily function? How? (Chest pain, [place], AR, pneumonia, PE, COPD, DKA, ARF, appy, cholecystitis, CVA, Diverticulitis, Homicidal, Suicidal, threat to staff... and all critical care pts) @ -No (Jimmy Subramanian) - Lab Data Lab Results 06/05/23 06/05/23 06/05/23 Range/Units 20:58 20:58 20:58 WBC 6.7 (3.8-10.6) k/uL RBC 4.04 L (4.30-5.90) m/uL Hgb 13.1 (13.0-17.5) gm/dL Hct 37.5 L (39.0-53.0) % MCV 92.9 (80.0-100.0) fL MCH 32.5 (25.0-35.0) pg MCHC 35.0 (31.0-37.0) g/dL RDW 11.6 (11.5-15.5) % Plt Count 164 (150-450) k/uL MPV 9.8 Neutrophils % 56 % Lymphocytes % 34 % Monocytes % 8 % Eosinophils % 1 % Basophils % 0 % Neutrophils # 3.8 (1.3-7.7) k/uL Lymphocytes # 2.3 (1.0-4.8) k/uL Monocytes # 0.5 (0-1.0) k/uL Eosinophils # 0.1 (0-0.7) k/uL Basophils # 0.0 (0-0.2) k/uL Sodium 126 L (137-145) mmol/L Potassium 3.6 (3.5-5.1) mmol/L Chloride 95 L (98-107) mmol/L Carbon Dioxide 22 (22-30) mmol/L Anion Gap 9 mmol/L BUN 7 L (9-20) mg/dL Creatinine 0.55 L (0.66-1.25) mg/dL Est GFR (CKD-EPI)AfAm >90 (>60 ml/min/1.73 sqM) Est GFR (CKD-EPI)NonAf >90 (>60 ml/min/1.73 sqM) Glucose 88 (74-99) mg/dL Plasma Lactic Acid Unruly (0.7-2.0) mmol/L Calcium 8.8 (8.4-10.2) mg/dL Total Bilirubin 0.4 (0.2-1.3) mg/dL AST 26 (17-59) U/L ALT 26 (4-49) U/L Alkaline Phosphatase 43 (38-126) U/L Troponin I (0.000-0.034) ng/mL Total Protein 6.4 (6.3-8.2) g/dL Albumin 3.9 (3.5-5.0) g/dL Urine Color Colorless Urine Appearance Clear (Clear) Urine pH 6.5 (5.0-8.0) Ur Specific [place] 1.001 (1.001-1.035) Urine Protein Negative (Negative) Urine Glucose (UA) Negative (Negative) Urine Ketones Negative (Negative) Urine Blood Negative (Negative) Urine Nitrite Negative (Negative) Urine Bilirubin Negative (Negative) Urine Urobilinogen <2.0 (<2.0) mg/dL Ur Leukocyte Esterase Negative (Negative) Valproic Acid ug/mL [place] mmol/L 06/05/23 06/05/23 06/05/23 Range/Units 20:58 21:41 23:06 WBC (3.8-10.6) k/uL RBC (4.30-5.90) m/uL Hgb (13.0-17.5) gm/dL Hct (39.0-53.0) % MCV (80.0-100.0) fL MCH (25.0-35.0) pg MCHC (31.0-37.0) g/dL RDW (11.5-15.5) % Plt Count (150-450) k/uL MPV Neutrophils % % Lymphocytes % % Monocytes % % Eosinophils % % Basophils % % Neutrophils # (1.3-7.7) k/uL Lymphocytes # (1.0-4.8) k/uL Monocytes # (0-1.0) k/uL Eosinophils # (0-0.7) k/uL Basophils # (0-0.2) k/uL Sodium (137-145) mmol/L Potassium (3.5-5.1) mmol/L Chloride (98-107) mmol/L Carbon Dioxide (22-30) mmol/L Anion Gap mmol/L BUN (9-20) mg/dL Creatinine (0.66-1.25) mg/dL Est GFR (CKD-EPI)AfAm (>60 ml/min/1.73 sqM) Est GFR (CKD-EPI)NonAf (>60 ml/min/1.73 sqM) Glucose (74-99) mg/dL Plasma Lactic Acid Unruly 0.8 (0.7-2.0) mmol/L Calcium (8.4-10.2) mg/dL Total Bilirubin (0.2-1.3) mg/dL AST (17-59) U/L ALT (4-49) U/L Alkaline Phosphatase (38-126) U/L Troponin I <0.012 (0.000-0.034) ng/mL Total Protein (6.3-8.2) g/dL Albumin (3.5-5.0) g/dL Urine Color Urine Appearance (Clear) Urine pH (5.0-8.0) Ur Specific [place] (1.001-1.035) Urine Protein (Negative) Urine Glucose (UA) (Negative) Urine Ketones (Negative) Urine Blood (Negative) Urine Nitrite (Negative) Urine Bilirubin (Negative) Urine Urobilinogen (<2.0) mg/dL Ur Leukocyte Esterase (Negative) Valproic Acid 38.7 ug/mL [place] 3.2 H* mmol/L - EKG Data EKG Comments: EKG shows a sinus rhythm with nonspecific ST and T-wave changes. 69 bpm, ND 176, QRS 110, QT/QTc 415/434. This appears similar to prior. (Jimmy Subramanian) Disposition Time of Disposition: 23:51 <Jimmy Subramanian - Last Filed: 06/05/23 23:50> <Marycruz Payne - Last Filed: 06/07/23 09:31> Clinical Impression: [place] toxicity Disposition: ADMITTED IP TO THIS HOSP
[2023-06-05 21:36] LABS: Appearance,Urine Clear (Clear); Basophils % (A) 0 %; Bilirubin,Urine Negative (Negative); Blood,Urine Negative (Negative); Color,Urine Colorless; Eosinophils # (A) 0.1 k/uL (0-0.7); Eosinophils % (A) 1 %; Glucose,Urine (UA) Negative (Negative); HCT 37.5 % (39.0-53.0); HGB 13.1 gm/dL (13.0-17.5); Ketones,Urine Negative (Negative); Leukocyte Esterase,Urine Negative (Negative); Lymphocytes # (A) 2.3 k/uL (1.0-4.8); Lymphocytes % (A) 34 %; MCH 32.5 pg (25.0-35.0); MCV 92.9 fL (80.0-100.0); Mean Platelet Volume 9.8; Monocytes # (A) 0.5 k/uL (0-1.0); Monocytes % (A) 8 %; Neutrophils # (A) 3.8 k/uL (1.3-7.7); Neutrophils % (A) 56 %; Nitrite,Urine Negative (Negative); PH, Urine 6.5 (5.0-8.0); Platelet Count 164 k/uL (150-450); Protein,Urine Negative (Negative); RBC 4.04 m/uL (4.30-5.90); RDW 11.6 % (11.5-15.5); Specific Gravity,Urine 1.001 (1.001-1.035); Urobilinogen,Urine <2.0 mg/dL (<2.0); WBC 6.7 k/uL (3.8-10.6)
[2023-06-05 21:43] LABS: ALT 26 U/L (4-49); AST 26 U/L (17-59); African American GFR (CKD) >90 (>60 ml/min/1.73 sqM); Albumin 3.9 g/dL (3.5-5.0); Alkaline Phosphatase 43 U/L (38-126); Anion Gap 9 mmol/L; Blood Urea Nitrogen 7 mg/dL (9-20); Calcium 8.8 mg/dL (8.4-10.2); Carbon Dioxide 22 mmol/L (22-30); Chloride 95 mmol/L (98-107); Glucose 88 mg/dL (74-99); Non-African American GFR(CKD) >90 (>60 ml/min/1.73 sqM); Potassium 3.6 mmol/L (3.5-5.1); Sodium 126 mmol/L (137-145); Total Bilirubin 0.4 mg/dL (0.2-1.3); Total Protein 6.4 g/dL (6.3-8.2)
--- NOTE | 2023-06-05 22:13 | XR ---
EXAMINATION TYPE: XR chest 2V DATE OF EXAM: 06/05/2023 COMPARISON: 05/31/2023 INDICATION: Pneumonia dizziness TECHNIQUE: Single frontal view of the chest is obtained. FINDINGS: The heart size is normal. The pulmonary vasculature is normal. The lungs are clear. IMPRESSION: 1. No acute pulmonary process.
[2023-06-05 23:21] LABS: Valproic Acid (Depakene) 38.7 ug/mL
[2023-06-05 23:24] LABS: Lithium 3.2 mmol/L
[2023-06-05] MEDS ORDERED: SODIUM CHLORIDE 0.9% 1,000 ML IV SCH (23:45)
[2023-06-05] MEDS ORDERED: HYDROmorphone 0.5 MG/0.5 ML SYRINGE IVP PRN (23:51)
[2023-06-05] MEDS ORDERED: ONDANSETRON 4 MG/2 ML VIAL IVP PRN (23:51)
[2023-06-05] MEDS ORDERED: ACETAMINOPHEN TAB 325 MG TAB PO PRN (23:51)
[2023-06-05] MEDS ORDERED: NALOXONE 0.4 MG/ML 1 ML VIAL IV PRN (23:51)
[2023-06-05] MEDS ORDERED: LORazepam 2 MG/ML INJ IM PRN (23:54)
[2023-06-06 09:22] VITALS: BP 149/76; PULSE 114; RESP 18; TEMP 98.1
--- NOTE | 2023-06-07 07:34 | HP ---
HISTORY AND PHYSICAL CHIEF COMPLAINT: Dizziness and weakness, and lithium toxicity. HISTORY OF PRESENT ILLNESS: This is a 33-year-old gentleman with a past medical history of multiple psychiatric problems including intermittent explosive disorder and mental retardation, being followed and Dr. Sumner in the outpatient setting, admitted with shakiness, weakness. The patient found to have lithium toxicity with 3.4. Levels improved to 0.4 today. The patient is keen on going home. There is no history of chest pain or palpitation at this time. PAST MEDICAL HISTORY: Reviewed, includes intermittent explosive disorder, mental retardation. Rest of the history and rest of the chart are also reviewed. HOME MEDICATIONS: Include lithium 900 mg, dose and rest of medications reviewed. ALLERGIES: None. FAMILY HISTORY: No history of heart disease or strokes in the family. SOCIAL HISTORY: No smoking or alcohol intake. REVIEW OF SYSTEMS: Fourteen-point review of systems is negative except as mentioned earlier. PHYSICAL EXAMINATION: VITAL SIGNS: Pulse is 73, blood pressure 131/80, respirations 16. CHEST: Clear to auscultation. CARDIOVASCULAR: S1, S2. ABDOMEN: Soft. NERVOUS SYSTEM: No focal deficits. SKIN: No ulcer, rash, or bleeding. LABORATORY DATA: Labs are reviewed. ASSESSMENT: 1. Acute lithium toxicity, improved. 2. Generalized weakness. 3. Seizure disorder. 4. Intermittent explosive disorder. 5. Mental retardation. 6. Attention deficit disorder, attention deficit hyperactivity disorder. RECOMMENDATIONS AND DISCUSSION: This 33-year-old gentleman presented with multiple complex medical issues. The patient is currently stable. I would recommend hold the lithium for today and restart tomorrow, and closely follow with Psychiatry and follow up lithium levels in the outpatient setting. Otherwise, the medications may have be re-evaluated in the outpatient setting. We will recommend the patient to closely follow up with . Overall prognosis guarded. Currently stable. The patient is keen on going home as well. So, see the discharge reconciliation sheet for list of medications. MMODL / IJN: [id number] /
== END 2023-06-06 13:23 | disposition home or self-care (01) ==
LOC: EC 20:06 → 5NMEDONC 06-06 00:05
PROVIDERS: ADMIT Hospitalist; ATTEND Hospitalist
DX: R53.1 Weakness (principal); T43.595A Adverse effect of other antipsychotics and neuroleptics, initial encounter; F84.0 Autistic disorder; F79 Unspecified intellectual disabilities; F90.9 Attention-deficit hyperactivity disorder, unspecified type; F63.81 Intermittent explosive disorder; G40.909 Epilepsy, unspecified, not intractable, without status epilepticus; Z79.890 Hormone replacement therapy; Z79.899 Other long term (current) drug therapy
CPT/HCPCS: 99285; 36415; 93005; 80164; 80053; 83605; 80178 ×2; 84484; 85025; 81003; 71046; G0378

== ENCOUNTER 2023-08-02 01:01 | Emergency (ER) | payer MEDICARE, OTHER ==
[2023-08-02] MEDS ORDERED: SODIUM CHLORIDE 0.9% 1,000 ML IV ONE (01:13)
[2023-08-02] MEDS ORDERED: LORazepam 2 MG/ML INJ IV STA (01:15)
[2023-08-02 01:20] VITALS: TEMP 97.7
[2023-08-02 01:20] LABS: Glucose,Whole Blood 120 mg/dL (70-110)
--- NOTE | 2023-08-02 01:25 | ED ---
General Adult HPI - General Chief complaint: Neuro Symptoms/Deficit Stated complaint: Possible stroke Time Seen by Provider: 08/02/23 01:08 Source: patient, EMS Mode of arrival: EMS Limitations: no limitations - History of Present Illness Initial comments: 33 year old Male with a past medical history significant for developmental delay, autism spectrum disorder, intermittent explosive disorder, HTN, and seizure disorder due to the ED due to altered mental status. Per caregiver, is normally able to converse. Also notes patient is normally alert and oriented. Able to stand and perform daily activities with minimal assistance. Last known well 3 PM. Patient states tonight, patient started to become less responsive. Noted tremors of his extremities. Also notes that patient has stopped conversing. Upon obtaining history from patient patient does not verbalize and only mumbles. Therefore, history at this time limited. - Related Data Home Medications Medication Instructions Recorded Confirmed LORazepam [Ativan] 1 mg PO QID@08,12,1430,20 02/23/17 06/06/23 Clindamycin Topical Soln 1 applic TOPICAL DAILY@0800 04/19/19 06/06/23 [Cleocin-T Topical Soln] Metoprolol Succinate [Toprol XL] 25 mg PO DAILY@1600 04/19/19 06/06/23 Benzoyl Peroxide 10% Wash 1 applic TOPICAL DAILY@79906/16/22 06/06/23 Dicyclomine [Bentyl] 10 mg PO TID@0800,1200,199906/16/22 06/06/23 Levothyroxine Sodium [Synthroid] 50 mcg PO DAILY@59906/16/22 06/06/23 Occidental Carbonate 900 mg PO DAILY@79906/16/22 06/06/23 Omeprazole 40 mg PO DAILY@59906/16/22 06/06/23 cloZAPine [Clozaril] 100 mg PO BID@0800,1200 06/16/22 06/06/23 cloZAPine [Clozaril] 300 mg PO HS@199906/16/22 06/06/23 fluPHENAZine [Prolixin] 5 mg PO BID@0800,1200 06/16/22 06/06/23 fluvoxaMINE MALEATE 50 mg PO DAILY@0800 06/16/22 06/06/23 hydrOXYzine pamoate 50 mg PO Q4H PRN 06/16/22 06/06/23 Divalproex Sodium [Depakote] 2,000 mg PO HS@199905/31/23 06/06/23 Ergocalciferol [Vitamin D2 (1250 1,250 mcg PO MO@0800 05/31/23 06/06/23 Mcg = 11737 Iu)] Glycopyrrolate [Robinul Forte] 2 mg PO HS@199905/31/23 06/06/23 Optive Gel Eye Drops 1 drop BOTH EYES HS@199905/31/23 06/06/23 Tretinoin [Retin-A 0.1%] 1 applic TOPICAL HS@199905/31/23 06/06/23 cloNIDine HCL 0.2 mg PO TID@0800,1200,1600 05/31/23 06/06/23 Allergies Allergy/AdvReac Type Severity Reaction Status Date / Time No Known Allergies Allergy Verified 06/26/23 13:39 Review of Systems ROS Statement: Those systems with pertinent positive or pertinent negative responses have been documented in the HPI. ROS Other: All systems not noted in ROS Statement are negative. Past Medical History Past Medical History: Seizure Disorder Additional Past Medical History / Comment(s): anger issues, autistic, explosive disorder, mental retardation, Low heart rate with halter monitor 02/03/2019 History of Any Multi-Drug Resistant Organisms: None Reported Past Surgical History: No Surgical Hx Reported Past Anesthesia/Blood Transfusion Reactions: No Reported Reaction Past Psychological History: ADD/ADHD Smoking Status: Never smoker Past Alcohol Use History: None Reported Past Drug Use History: None Reported - Past Family History Mother Additional Family Medical History / Comment(s): Patient states mother is 44 years old and alive. Patient also has 1 brother and 1 sister which she state are healthy. General Exam General appearance: alert Eye exam: Present: normal appearance Neck exam: Present: normal inspection Respiratory exam: Present: normal lung sounds bilaterally Cardiovascular Exam: Present: tachycardia GI/Abdominal exam: Present: soft Neurological exam: Present: other (Does not answer questions however follows commands somewhat appropriately.) Course Vital Signs 08/02/23 08/02/23 08/02/23 01:07 01:57 02:30 Temperature 97.7 F Pulse Rate 114 H 103 H 96 Respiratory 16 18 18 Rate Blood Pressure 169/93 128/69 134/80 O2 Sat by Pulse 98 97 99 Oximetry Medical Decision Making - Medical Decision Making Was pt. sent in by a medical professional or institution (, PATRICIO, CANAL EQUIPMENT MAINTENANCE SUPERVISOR, urgent care, hospital, or care home...) When possible be specific @ -No Did you speak to anyone other than the patient for history (EMS, parent, family, police, friend...)? What history was obtained from this source @ -No Did you review nursing and triage notes (agree or disagree)? Why? @ -I reviewed and agree with nursing and triage notes Were old charts reviewed (outside hosp., previous admission, EMS record, old EKG, old radiological studies, urgent care reports/EKG's, care home records)? Report findings @ -No old charts were reviewed Differential Diagnosis (chest pain, altered mental status, abdominal pain women, abdominal pain men, vaginal bleeding, weakness, fever, dyspnea, syncope, headache, dizziness, GI bleed, back pain, seizure, CVA, palpatations, mental health, musculoskeletal)? @ -Differential Altered Mental Status: Hypoglycemia, DKA, hypercapnia, ETOH, overdose, CO poisoning, trauma, myxedema coma, HTN encephalopathy, infection, encephalitis, psychosis, intercranial hemorrhage, hepatic encephalopathy, meningitis, CVA, this is not meant to be an all-inclusive list EKG interpreted by me (3pts min.). @ -As above X-rays interpreted by me (1pt min.). @ -Chest x-ray interpreted by showing no acute finding. CT interpreted by me (1pt min.). @ -CT brain interpreted by me showing no evidence of acute findings. U/S interpreted by me (1pt. min.). @ -None done What testing was considered but not performed or refused? (CT, X-rays, U/S, labs)? Why? @ -None What meds were considered but not given or refused? Why? @ -None Did you discuss the management of the patient with other professionals (professionals i.e. , PATRICIO, CANAL EQUIPMENT MAINTENANCE SUPERVISOR, lab, RT, psych nurse, social insurance administrator, tool adjuster, teacher, forest officer, case management director)? Give summary @ -No Was smoking cessation discussed for >3mins.? @ -No Was critical care preformed (if so, how long)? @ -No Were there social determinants of health that impacted care today? How? (Homelessness, low income, unemployed, alcoholism, drug addiction, transportation, low edu. Level, literacy, decrease access to med. care, correction, rehab)? @ -No Was there de-escalation of care discussed even if they declined (Discuss DNR or withdrawal of care, Hospice)? DNR status @ -No What co-morbidities impacted this encounter? (DM, HTN, Smoking, COPD, CAD, Cancer, CVA, ARF, Chemo, Hep., AIDS, mental health diagnosis, sleep apnea, morbid obesity)? @ -Developmental delay, seizure disorder Was patient admitted / discharged? Hospital course, mention meds given and route, prescriptions, significant lab abnormalities, going to OR and other pertinent info. @ -Discharge 33-year-old male presents to ED with a chief complaint of altered mental status. Per caregiver, normally able to talk and stand on his own and perform activities. On initial presentation patient mumbles and will not directly answer questions. Did not follow commands well. Laboratory studies did show an elevated lactic acid at 2.3 however upon arrival patient did have a seizure. Laboratory studies also remarkable for an elevated valproic acid at 121. Patient had significant improvement of symptoms here in the ED and has started to converse. At this time, patient is very keen on going home. At this time, per caregiver patient is back at baseline. Patient discharged home in stable condition. Discussed return precautions with patient's caregiver who verbalizes agreement. Undiagnosed new problem with uncertain prognosis? @ -No Drug Therapy requiring intensive monitoring for toxicity (Heparin, Nitro, I nsulin, Cardizem)? @ -No Were any procedures done? @ -No Diagnosis/symptom? @ -Altered mental status Acute, or Chronic, or Acute on Chronic? @ -Acute Uncomplicated (without systemic symptoms) or Complicated (systemic symptoms)? @ -Uncomplicated Side effects of treatment? @ -No Exacerbation, Progression, or Severe Exacerbation? @ -No Poses a threat to life or bodily function? How? (Chest pain, [place], [place], pneumonia, PE, COPD, DKA, ARF, appy, cholecystitis, CVA, Diverticulitis, Homicidal, Suicidal, threat to staff... and all critical care pts) @ -No - Lab Data Result diagrams: 08/02/23 01:21 08/02/23 01:21 Lab Results 11/06/23 11/06/23 11/06/23 Range/Units 01:19 01:21 01:21 WBC 7.9 (3.8-10.6) k/uL RBC 4.48 (4.30-5.90) m/uL Hgb 14.5 (13.0-17.5) gm/dL Hct 41.9 (39.0-53.0) % MCV 93.6 (80.0-100.0) fL MCH 32.4 (25.0-35.0) pg MCHC 34.6 (31.0-37.0) g/dL RDW 12.0 (11.5-15.5) % Plt Count 162 (150-450) k/uL MPV 9.5 Neutrophils % 56 % Lymphocytes % 35 % Monocytes % 6 % Eosinophils % 1 % Basophils % 0 % Neutrophils # 4.4 (1.3-7.7) k/uL Lymphocytes # 2.8 (1.0-4.8) k/uL Monocytes # 0.4 (0-1.0) k/uL Eosinophils # 0.1 (0-0.7) k/uL Basophils # 0.0 (0-0.2) k/uL PT 11.1 (10.0-12.5) sec INR 1.0 (<1.2) APTT 20.5 L (22.0-30.0) sec Sodium (137-145) mmol/L Potassium (3.5-5.1) mmol/L Chloride (98-107) mmol/L Carbon Dioxide (22-30) mmol/L Anion Gap mmol/L BUN (9-20) mg/dL Creatinine (0.66-1.25) mg/dL Est GFR (CKD-EPI)AfAm (>60 ml/min/1.73 sqM) Est GFR (CKD-EPI)NonAf (>60 ml/min/1.73 sqM) Glucose (74-99) mg/dL POC Glucose (mg/dL) 120 H (70-110) mg/dL POC Glu [employer] Team Member ID Johnnie Hdz Plasma Lactic Acid Unruly (0.7-2.0) mmol/L Calcium (8.4-10.2) mg/dL Total Bilirubin (0.2-1.3) mg/dL AST (17-59) U/L ALT (4-49) U/L Alkaline Phosphatase (38-126) U/L Ammonia (<30) umol/L Troponin I (0.000-0.034) ng/mL Total Protein (6.3-8.2) g/dL Albumin (3.5-5.0) g/dL Urine Color Urine Appearance (Clear) Urine pH (5.0-8.0) Ur Specific Cando (1.001-1.035) Urine Protein (Negative) Urine Glucose (UA) (Negative) Urine Ketones (Negative) Urine Blood (Negative) Urine Nitrite (Negative) Urine Bilirubin (Negative) Urine Urobilinogen (<2.0) mg/dL Ur Leukocyte Esterase (Negative) Urine RBC (0-5) /hpf Urine WBC (0-5) /hpf Ur Squamous Epith Cells (0-4) /hpf Urine Bacteria (None) /hpf Valproic Acid ug/mL Occidental mmol/L 08/02/23 08/02/23 08/02/23 Range/Units 01:21 01:21 01:21 WBC (3.8-10.6) k/uL RBC (4.30-5.90) m/uL Hgb (13.0-17.5) gm/dL Hct (39.0-53.0) % MCV (80.0-100.0) fL MCH (25.0-35.0) pg MCHC (31.0-37.0) g/dL RDW (11.5-15.5) % Plt Count (150-450) k/uL MPV Neutrophils % % Lymphocytes % % Monocytes % % Eosinophils % % Basophils % % Neutrophils # (1.3-7.7) k/uL Lymphocytes # (1.0-4.8) k/uL Monocytes # (0-1.0) k/uL Eosinophils # (0-0.7) k/uL Basophils # (0-0.2) k/uL PT (10.0-12.5) sec INR (<1.2) APTT (22.0-30.0) sec Sodium 139 (137-145) mmol/L Potassium 4.1 (3.5-5.1) mmol/L Chloride 102 (98-107) mmol/L Carbon Dioxide 23 (22-30) mmol/L Anion Gap 14 mmol/L BUN 10 (9-20) mg/dL Creatinine 0.62 L (0.66-1.25) mg/dL Est GFR (CKD-EPI)AfAm >90 (>60 ml/min/1.73 sqM) Est GFR (CKD-EPI)NonAf >90 (>60 ml/min/1.73 sqM) Glucose 119 H (74-99) mg/dL POC Glucose (mg/dL) (70-110) mg/dL POC Glu [employer] Team Member ID Plasma Lactic Acid Unruly 2.3 H* (0.7-2.0) mmol/L Calcium 10.0 (8.4-10.2) mg/dL Total Bilirubin 0.6 (0.2-1.3) mg/dL AST 28 (17-59) U/L ALT 20 (4-49) U/L Alkaline Phosphatase 53 (38-126) U/L Ammonia 20 (<30) umol/L Troponin I <0.012 (0.000-0.034) ng/mL Total Protein 7.8 (6.3-8.2) g/dL Albumin 4.8 (3.5-5.0) g/dL Urine Color Urine Appearance (Clear) Urine pH (5.0-8.0) Ur Specific Cando (1.001-1.035) Urine Protein (Negative) Urine Glucose (UA) (Negative) Urine Ketones (Negative) Urine Blood (Negative) Urine Nitrite (Negative) Urine Bilirubin (Negative) Urine Urobilinogen (<2.0) mg/dL Ur Leukocyte Esterase (Negative) Urine RBC (0-5) /hpf Urine WBC (0-5) /hpf Ur Squamous Epith Cells (0-4) /hpf Urine Bacteria (None) /hpf Valproic Acid 121.0 H* ug/mL Occidental 0.6 mmol/L 08/02/23 Range/Units 03:45 WBC (3.8-10.6) k/uL RBC (4.30-5.90) m/uL Hgb (13.0-17.5) gm/dL Hct (39.0-53.0) % MCV (80.0-100.0) fL MCH (25.0-35.0) pg MCHC (31.0-37.0) g/dL RDW (11.5-15.5) % Plt Count (150-450) k/uL MPV Neutrophils % % Lymphocytes % % Monocytes % % Eosinophils % % Basophils % % Neutrophils # (1.3-7.7) k/uL Lymphocytes # (1.0-4.8) k/uL Monocytes # (0-1.0) k/uL Eosinophils # (0-0.7) k/uL Basophils # (0-0.2) k/uL PT (10.0-12.5) sec INR (<1.2) APTT (22.0-30.0) sec Sodium (137-145) mmol/L Potassium (3.5-5.1) mmol/L Chloride (98-107) mmol/L Carbon Dioxide (22-30) mmol/L Anion Gap mmol/L BUN (9-20) mg/dL Creatinine (0.66-1.25) mg/dL Est GFR (CKD-EPI)AfAm (>60 ml/min/1.73 sqM) Est GFR (CKD-EPI)NonAf (>60 ml/min/1.73 sqM) Glucose (74-99) mg/dL POC Glucose (mg/dL) (70-110) mg/dL POC Glu [employer] Team Member ID Plasma Lactic Acid Unruly (0.7-2.0) mmol/L Calcium (8.4-10.2) mg/dL Total Bilirubin (0.2-1.3) mg/dL AST (17-59) U/L ALT (4-49) U/L Alkaline Phosphatase (38-126) U/L Ammonia (<30) umol/L Troponin I (0.000-0.034) ng/mL Total Protein (6.3-8.2) g/dL Albumin (3.5-5.0) g/dL Urine Color Colorless Urine Appearance Clear (Clear) Urine pH 6.0 (5.0-8.0) Ur Specific Cando 1.004 (1.001-1.035) Urine Protein Negative (Negative) Urine Glucose (UA) Negative (Negative) Urine Ketones Negative (Negative) Urine Blood Small H (Negative) Urine Nitrite Negative (Negative) Urine Bilirubin Negative (Negative) Urine Urobilinogen <2.0 (<2.0) mg/dL Ur Leukocyte Esterase Negative (Negative) Urine RBC 1 (0-5) /hpf Urine WBC 1 (0-5) /hpf Ur Squamous Epith Cells <1 (0-4) /hpf Urine Bacteria Few H (None) /hpf Valproic Acid ug/mL Occidental mmol/L - EKG Data EKG Comments: EKG shows a sinus rhythm at 108 bpm with nonspecific changes. ID [id number], QRS 104, QT/QTc 362/425. Disposition Clinical Impression: Altered mental status Disposition: HOME SELF-CARE Condition: Good Additional Instructions: Please return to the Emergency Department if symptoms worsen or any other concerns. Is patient prescribed a controlled substance at d/c from ED?: No Referrals: Otoniel Garcia MD [Primary Care Provider] - 1-2 days Time of Disposition: 04:34
[2023-08-02] MEDS ORDERED: SODIUM CHLORIDE 0.9% 1,000 ML IV STA (01:59)
[2023-08-02 02:11] LABS: Basophils % (A) 0 %; Eosinophils # (A) 0.1 k/uL (0-0.7); Eosinophils % (A) 1 %; HCT 41.9 % (39.0-53.0); HGB 14.5 gm/dL (13.0-17.5); Lymphocytes # (A) 2.8 k/uL (1.0-4.8); Lymphocytes % (A) 35 %; MCH 32.4 pg (25.0-35.0); MCHC 34.6 g/dL (31.0-37.0); MCV 93.6 fL (80.0-100.0); Mean Platelet Volume 9.5; Monocytes # (A) 0.4 k/uL (0-1.0); Monocytes % (A) 6 %; Neutrophils # (A) 4.4 k/uL (1.3-7.7); Neutrophils % (A) 56 %; Platelet Count 162 k/uL (150-450); RBC 4.48 m/uL (4.30-5.90); WBC 7.9 k/uL (3.8-10.6)
[2023-08-02 02:23] VITALS: RESP 18
[2023-08-02 02:27] LABS: Partial Thromboplastin Time 20.5 sec (22.0-30.0); Prothrombin Time 11.1 sec (10.0-12.5)
--- NOTE | 2023-08-02 02:30 | CT ---
EXAM: CT Head Without Intravenous Contrast CLINICAL HISTORY: ITS.REASON CT Reason: AMS TECHNIQUE: Axial computed tomography images of the head/brain without intravenous contrast. CTDI is 49.2 mGy and DLP is 1212.4 mGy-cm. This CT exam was performed using one or more of the following dose reduction techniques: automated exposure control, adjustment of the mA and/or kV according to patient size, and/or use of iterative reconstruction technique. COMPARISON: No relevant prior studies available. FINDINGS: Brain: No hemorrhage or mass effect. Ventricles: No hydrocephalus. Bones/joints: Unremarkable. Soft tissues: Posterior scalp swelling. Sinuses: Completely opacified right frontal sinus Mastoid air cells: Clear. IMPRESSION: No acute hemorrhage, hydrocephalus, or mass effect. Completely opacified right frontal sinus
[2023-08-02 03:01] LABS: ALT 20 U/L (4-49); AST 28 U/L (17-59); African American GFR (CKD) >90 (>60 ml/min/1.73 sqM); Albumin 4.8 g/dL (3.5-5.0); Alkaline Phosphatase 53 U/L (38-126); Anion Gap 14 mmol/L; Blood Urea Nitrogen 10 mg/dL (9-20); Carbon Dioxide 23 mmol/L (22-30); Chloride 102 mmol/L (98-107); Glucose 119 mg/dL (74-99); Non-African American GFR(CKD) >90 (>60 ml/min/1.73 sqM); Potassium 4.1 mmol/L (3.5-5.1); Sodium 139 mmol/L (137-145); Total Bilirubin 0.6 mg/dL (0.2-1.3); Total Protein 7.8 g/dL (6.3-8.2)
[2023-08-02 03:06] VITALS: PULSE 96
[2023-08-02 03:11] LABS: Lactic Acid, Venous 2.3 mmol/L (0.7-2.0)
[2023-08-02 03:17] LABS: Lithium 0.6 mmol/L
[2023-08-02] MEDS ORDERED: LORazepam 2 MG/ML INJ IV PRN (04:11)
--- NOTE | 2023-08-02 04:12 | XR ---
EXAM: XR Chest, 1 View CLINICAL HISTORY: ITS.REASON XR Reason: altered mental status TECHNIQUE: Frontal view of the chest. COMPARISON: XR Chest dated may 31 2023 FINDINGS: Lungs: Unremarkable. No consolidation. Soft tissues: Scalp hematoma overlying the left parietal bone measuring up to 7 mm in thickness. Other findings: No acute intracranial abnormality. Consider MRI if there is further concern. Paranasal sinus mucosal thickening with prominent right maxillary sinus mucous retention cysts. Prior medial antrostomies also noted. IMPRESSION: 1. No acute intracranial abnormality. Consider MRI if there is further concern. 2. Scalp hematoma overlying the left parietal bone measuring up to 7 mm in thickness.
[2023-08-02 04:25] LABS: Appearance,Urine Clear (Clear); Bacteria,Urine Few /hpf; Bilirubin,Urine Negative (Negative); Blood,Urine Small (Negative); Color,Urine Colorless; Glucose,Urine (UA) Negative (Negative); Ketones,Urine Negative (Negative); Leukocyte Esterase,Urine Negative (Negative); Nitrite,Urine Negative (Negative); Protein,Urine Negative (Negative); RBC,Urine 1 /hpf (0-5); Specific Gravity,Urine 1.004 (1.001-1.035); Squamous Epithelial Cell,Urine <1 /hpf (0-4); Urobilinogen,Urine <2.0 mg/dL (<2.0); WBC,Urine 1 /hpf (0-5)
[2023-08-02 05:11] VITALS: BP 146/91
== END 2023-08-02 06:30 | disposition home or self-care (01) ==
LOC: EC 01:01
DX: R41.82 Altered mental status, unspecified (principal); I10 Essential (primary) hypertension; Z79.899 Other long term (current) drug therapy
CPT/HCPCS: 36415; 80164; 80053; 82140; 83605; 80178; 84484; 85025; 85610; 85730; 81001; 71045; 70450; 99285; 96374; 96375; 96361; 96376; J2060; J3360

== ENCOUNTER 2023-08-08 18:20 | Emergency (ER) | payer MEDICARE, OTHER ==
[2023-08-08 18:36] VITALS: RESP 18
[2023-08-08] MEDS ORDERED: LORazepam 2 MG/ML INJ IM STA (18:41)
--- NOTE | 2023-08-08 18:45 | ED ---
General Adult HPI - General Chief complaint: Neuro Symptoms/Deficit Stated complaint: Seizures Time Seen by Provider: 08/08/23 18:21 Source: EMS, Caregiver Mode of arrival: EMS - History of Present Illness Initial comments: Dictation was produced using [employer] dictation software. please excuse any grammatical, word or spelling errors. Chief Complaint: 33-year-old male past nuchal history of seizure and mental debility presents to emergency department for alleged seizure History of Present Illness: Patient 33-year-old male is brought in from assisted. History of present illness obtained from assisted staff member. Patient allegedly was having conversation when he got up to walk away. He fell. Staff went to help the patient. Then he was seen with facial twitching. They report that he seemed to be coherent throughout the event. He was switching for several minutes. It resolved spontaneously. They report that patient is near back to baseline. Patient is mostly had a seizure last week. He takes Depakote for antiseizure medications The ROS documented in this emergency department record has been reviewed and confirmed by me. Those systems with pertinent positive or negative responses have been documented in the HPI. All other systems are other negative and/or noncontributory. - Related Data Home Medications Medication Instructions Recorded Confirmed LORazepam [Ativan] 1 mg PO QID@08,12,1430,20 02/23/17 06/06/23 Clindamycin Topical Soln 1 applic TOPICAL DAILY@0800 04/19/19 06/06/23 [Cleocin-T Topical Soln] Metoprolol Succinate [Toprol XL] 25 mg PO DAILY@1600 04/19/19 06/06/23 Benzoyl Peroxide 10% Wash 1 applic TOPICAL DAILY@0806/16/22 06/06/23 Dicyclomine [Bentyl] 10 mg PO TID@0800,1200,199906/16/22 06/06/23 Levothyroxine Sodium [Synthroid] 50 mcg PO DAILY@59906/16/22 06/06/23 [place] Carbonate 900 mg PO DAILY@0806/16/22 06/06/23 Omeprazole 40 mg PO DAILY@0600 06/16/22 06/06/23 cloZAPine [Clozaril] 100 mg PO BID@0800,1200 06/16/22 06/06/23 cloZAPine [Clozaril] 300 mg PO HS@199906/16/22 06/06/23 fluPHENAZine [Prolixin] 5 mg PO BID@0800,1200 06/16/22 06/06/23 fluvoxaMINE MALEATE 50 mg PO DAILY@0800 06/16/22 06/06/23 hydrOXYzine pamoate 50 mg PO Q4H PRN 06/16/22 06/06/23 Divalproex Sodium [Depakote] 2,000 mg PO HS@199905/31/23 06/06/23 Ergocalciferol [Vitamin D2 (1250 1,250 mcg PO MO@79905/31/23 06/06/23 Mcg = 09050 Iu)] Glycopyrrolate [Robinul Forte] 2 mg PO HS@199905/31/23 06/06/23 Optive Gel Eye Drops 1 drop BOTH EYES HS@199905/31/23 06/06/23 Tretinoin [Retin-A 0.1%] 1 applic TOPICAL HS@199905/31/23 06/06/23 cloNIDine HCL 0.2 mg PO TID@0800,1200,1600 05/31/23 06/06/23 Allergies Allergy/AdvReac Type Severity Reaction Status Date / Time No Known Allergies Allergy Verified 06/26/23 13:39 Review of Systems ROS Statement: Those systems with pertinent positive or pertinent negative responses have been documented in the HPI. ROS Other: All systems not noted in ROS Statement are negative. Past Medical History Past Medical History: Seizure Disorder Additional Past Medical History / Comment(s): anger issues, autistic, explosive disorder, mental retardation, Low heart rate with halter monitor 02/03/2019 History of Any Multi-Drug Resistant Organisms: None Reported Past Surgical History: No Surgical Hx Reported Past Anesthesia/Blood Transfusion Reactions: No Reported Reaction Past Psychological History: ADD/ADHD Smoking Status: Never smoker Past Alcohol Use History: None Reported Past Drug Use History: None Reported - Past Family History Mother Additional Family Medical History / Comment(s): Patient states mother is 44 years old and alive. Patient also has 1 brother and 1 sister which she state are healthy. General Exam - General Exam Comments Initial Comments: PHYSICAL EXAM: General Impression: Alert, not in acute distress HEENT: Normocephalic atraumatic, extra-ocular movements intact, pupils equal and reactive to light bilaterally, mucous membranes moist. Cardiovascular: Heart regular rate and rhythm Chest: no retractions, no tachypnea Abdomen: abdomen soft, non-tender, non-distended, no organomegaly Musculoskeletal: Pulses present and equal in all extremities, no peripheral edema Motor: no focal deficits noted Neurological: CN II-XII grossly intact, no focal motor or sensory deficits noted Skin: Intact with no visualized rashes Course Vital Signs 08/08/23 08/08/23 18:26 22:03 Temperature 98.8 F 98.6 F Pulse Rate 103 H 98 Respiratory 18 18 Rate Blood Pressure 142/104 132/92 O2 Sat by Pulse 100 100 Oximetry EKG Findings - EKG Comments: EKG Findings:: My EKG interpretation: Ventricular rate 84, sinus rhythm,. 197, QRS 106, QTC 417. No NM prolongation, no QTC prolongation, no ST or T-wave changes noted. Overall, this EKG is unremarkable Medical Decision Making - Medical Decision Making Was pt. sent in by a medical professional or institution (, PA, PANTOGRAPH SETTER, urgent care, hospital, or alf...) When possible be specific @ [facility] Did you speak to anyone other than the patient for history (EMS, parent, family, police, friend...)? What history was obtained from this source @ -[facility] staff as stated above Did you review nursing and triage notes (agree or disagree)? Why? @ -I reviewed and agree with nursing and triage notes Were old charts reviewed (outside hosp., previous admission, EMS record, old EKG, old radiological studies, urgent care reports/EKG's, alf records)? Report findings @ -No old charts were reviewed Differential Diagnosis (chest pain, altered mental status, abdominal pain women, abdominal pain men, vaginal bleeding, musculoskeletal, weakness, fever, dyspnea, syncope, headache, dizziness, GI bleed, back pain, seizure, CVA, palpatations, mental health)? @ -DDifferential Seizure: Recurrent seizure disorder, febrile seizure, alcohol withdrawal, stimulants, meningitis, encephalitis, intercranial hemorrhage, intracranial tumor, stroke, eclampsia, thyrotoxicosis, hypocalcemia, hyponatremia, hypernatremia, hypomagnesemia, psychogenic, this is not meant to be an all-inclusive list. EKG interpreted by me (3pts min.). @ -See above X-rays interpreted by me (1pt min.). @ -None done CT interpreted by me (1pt min.). @ -None done U/S interpreted by me (1pt. min.). @ -None done What testing was considered but not performed or refused? (CT, X-rays, U/S, labs)? Why? @ -None What meds were considered but not given or refused? Why? @ -None Did you discuss the management of the patient with other professionals (professionals i.e. , PA, PANTOGRAPH SETTER, lab, RT, psych nurse, vp digital marketing social media and crm, religion teacher, teacher, airfield engineer officer, case consultant)? Give summary @ -No Was smoking cessation discussed for >3mins.? @ -No Was critical care preformed (if so, how long)? @ -No Were there social determinants of health that impacted care today? How? (Homelessness, low income, unemployed, alcoholism, drug addiction, transportation, low edu. Level, literacy, decrease access to med. care, retirement, rehab)? @ -No Was there de-escalation of care discussed even if they declined (Discuss DNR or withdrawal of care, Hospice)? DNR status @ -No What co-morbidities impacted this encounter? (DM, HTN, Smoking, COPD, CAD, Cancer, CVA, ARF, Chemo, Hep., AIDS, mental health diagnosis, sleep apnea, morbid obesity)? @ -None Was patient admitted / discharged? Hospital course, mention meds given and route, prescriptions, significant lab abnormalities, going to OR and other pertinent info. @ -33 Year-old male with history of seizures presents after witnessed seizure- like activity. Patient's history of mental delay vital signs stable. Patient well-appearing and at baseline currently. Laboratory evaluation obtained. Labs mostly unremarkable except for some mild hypomagnesemia 1.5. Patient given IV and oral magnesium. His EKG did not show any signs of hypomagnesemia. Patient discharged advised follow-up with neurologist. Undiagnosed new problem with uncertain prognosis? @ -No Drug Therapy requiring intensive monitoring for toxicity (Heparin, Nitro, Insulin, Cardizem)? @ -No Were any procedures done? @ -No Diagnosis/symptom? Acute, or Chronic, or Acute on Chronic? Uncomplicated (without systemic symptoms) or Complicated (systemic symptoms)? @ -seizure Side effects of treatment? @ -No Exacerbation, Progression, or Severe Exacerbation? @ -No Poses a threat to life or bodily function? How? (Chest pain, [place], [place], pneumonia, PE, COPD, DKA, ARF, appy, cholecystitis, CVA, Diverticulitis, Homicidal, Suicidal, threat to staff... and all critical care pts) @ -yes - Lab Data Result diagrams: 08/08/23 18:58 08/08/23 18:58 Lab Results 08/08/23 08/08/23 Range/Units 18:58 18:58 WBC 8.0 (3.8-10.6) k/uL RBC 4.49 (4.30-5.90) m/uL Hgb 14.7 (13.0-17.5) gm/dL Hct 41.6 (39.0-53.0) % MCV 92.6 (80.0-100.0) fL MCH 32.7 (25.0-35.0) pg MCHC 35.3 (31.0-37.0) g/dL RDW 11.7 (11.5-15.5) % Plt Count 184 (150-450) k/uL MPV 9.4 Neutrophils % 64 % Lymphocytes % 26 % Monocytes % 8 % Eosinophils % 1 % Basophils % 0 % Neutrophils # 5.1 (1.3-7.7) k/uL Lymphocytes # 2.1 (1.0-4.8) k/uL Monocytes # 0.6 (0-1.0) k/uL Eosinophils # 0.0 (0-0.7) k/uL Basophils # 0.0 (0-0.2) k/uL Sodium 133 L (137-145) mmol/L Potassium 3.8 (3.5-5.1) mmol/L Chloride 98 (98-107) mmol/L Carbon Dioxide 22 (22-30) mmol/L Anion Gap 13 mmol/L BUN 12 (9-20) mg/dL Creatinine 0.61 L (0.66-1.25) mg/dL Est GFR (CKD-EPI)AfAm >90 (>60 ml/min/1.73 sqM) Est GFR (CKD-EPI)NonAf >90 (>60 ml/min/1.73 sqM) Glucose 97 (74-99) mg/dL Calcium 9.2 (8.4-10.2) mg/dL Magnesium 1.5 L (1.6-2.3) mg/dL Disposition Clinical Impression: Seizure Disposition: HOME SELF-CARE Condition: Good Instructions (If sedation given, give patient instructions): Recurrent Seizures in Adults (ED) Is patient prescribed a controlled substance at d/c from ED?: No Referrals: Otoniel Garcia MD [Primary Care Provider] - 1-2 days Time of Disposition: 20:00
[2023-08-08] MEDS ORDERED: LORazepam 2 MG/ML INJ IV STA (19:07)
[2023-08-08 20:05] LABS: Basophils % (A) 0 %; Eosinophils % (A) 1 %; HCT 41.6 % (39.0-53.0); HGB 14.7 gm/dL (13.0-17.5); Lymphocytes # (A) 2.1 k/uL (1.0-4.8); Lymphocytes % (A) 26 %; MCH 32.7 pg (25.0-35.0); MCHC 35.3 g/dL (31.0-37.0); MCV 92.6 fL (80.0-100.0); Mean Platelet Volume 9.4; Monocytes # (A) 0.6 k/uL (0-1.0); Monocytes % (A) 8 %; Neutrophils # (A) 5.1 k/uL (1.3-7.7); Neutrophils % (A) 64 %; Platelet Count 184 k/uL (150-450); RBC 4.49 m/uL (4.30-5.90); RDW 11.7 % (11.5-15.5)
[2023-08-08 20:18] LABS: African American GFR (CKD) >90 (>60 ml/min/1.73 sqM); Anion Gap 13 mmol/L; Blood Urea Nitrogen 12 mg/dL (9-20); Calcium 9.2 mg/dL (8.4-10.2); Carbon Dioxide 22 mmol/L (22-30); Chloride 98 mmol/L (98-107); Glucose 97 mg/dL (74-99); Magnesium 1.5 mg/dL (1.6-2.3); Non-African American GFR(CKD) >90 (>60 ml/min/1.73 sqM); Potassium 3.8 mmol/L (3.5-5.1); Sodium 133 mmol/L (137-145)
[2023-08-08] MEDS ORDERED: MAGNESIUM OXIDE 400 MG TAB PO STA (20:26)
[2023-08-08] MEDS ORDERED: MAGNESIUM SULFATE-D5W PMX 1 GM in DEXTROSE/WATER 1 100ML.BAG IVPB ONE (20:26)
[2023-08-08 22:09] VITALS: BP 132/92; PULSE 98; TEMP 98.6
== END 2023-08-08 22:05 | disposition home or self-care (01) ==
LOC: EC 18:20
DX: R56.9 Unspecified convulsions (principal)
CPT/HCPCS: 36415; 93005; 80048; 83735; 85025; 99284; 96365; 96375; J2060; J3475

== ENCOUNTER 2024-02-03 18:20 | Emergency (ER) | payer MEDICARE, OTHER ==
[2024-02-03 18:48] VITALS: TEMP 98.2
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
[2024-02-03 20:06] VITALS: BP 142/98; PULSE 80; RESP 18
== END 2024-02-03 19:32 | disposition home or self-care (01) ==
LOC: EC 18:20
DX: S00.432A Contusion of left ear, initial encounter (principal); Y04.0XXA Assault by unarmed brawl or fight, initial encounter
CPT/HCPCS: 99283

== ENCOUNTER 2024-05-07 17:30 | Emergency (ER) | payer MEDICARE, OTHER ==
[2024-05-07] MEDS ORDERED: SODIUM CHLORIDE 0.9% 1,000 ML BAG ONE (17:50)
[2024-05-07] MEDS ORDERED: levETIRAcetam IV 500 MG/5 ML VIAL ONE (17:50)
[2024-05-07] MEDS ORDERED: SODIUM CHLORIDE 0.9% 500 ML BAG ONE (17:50)
--- NOTE | 2024-06-07 14:06 | CT ---
[id number] TOAN LUCERO : 1990 EXAM: CT brain without contrast. CT cervical spine without contrast. DATE: 05/07/2024 19:05 INDICATION: SEIZURE COMPARISON: None, please note PACS downtime occurred during the radiologist interpretation of these i mages with limited priors/reports.. TECHNIQUE: Multiple axial CT images of the brain were obtained without IV contrast. Axial CT images from the skull base to the inferior aspect of T2 we obtained without intravenous cont rast. Coronal and sagittal reformatted images were also reviewed. One or more CT dose reduction strategies were utilized during this examination. Total DLP administered was 1430.3 mGycm . FINDINGS: CT BRAIN: Extra-axial spaces: No abnormal extra-axial fluid collections. Ventricular system: Within normal limits Cerebral parenchyma: No acute intraparenchymal hemorrhage or mass effect. The benítez-white junction is well differentiated. Cerebellum: Unremarkable. Mass effect: No evidence of midline shift. Intracranial vasculature: unremarkable Soft tissues: Normal. Calvarium/osseous structures: No depressed skull fracture. Paranasal sinuses and mastoid air cells: Scattered mild mucosal thickening. Visualized orbits: Orbital contents are intact. CT CERVICAL SPINE: Fracture: None. Osseous structures: Multilevel degenerative disc disease changes with endplate spurring and disc oste ophyte complex's. Vertebral alignment: Within normal limits. Spinal canal/Neural Foramina: No evidence of significant spinal canal narrowing. No evidence of signi ficant neural foramina narrowing. Neck soft tissues: Prevertebral soft tissues are within normal limits. Other: The airway is patent. The lung apices are clear. IMPRESSION: No acute intracranial process. No evidence of cervical spine fracture. Mild multilevel degenerative disc disease.
== END 2024-05-07 20:19 | disposition home or self-care (01) ==
LOC: EC 17:30
DX: R41.82 Altered mental status, unspecified (principal)
CPT/HCPCS: 36415; 70450; 72125; 80177

== ENCOUNTER 2024-08-27 20:33 | Emergency (ER) | payer MEDICARE, OTHER ==
[2024-08-27 21:27] VITALS: TEMP 97.3
--- NOTE | 2024-08-27 21:46 | ED ---
General Adult HPI - General Chief complaint: Fall Stated complaint: Fall Time Seen by Provider: 08/27/24 21:30 Source: patient, RN notes reviewed Mode of arrival: ambulatory Limitations: altered mental status - History of Present Illness Initial comments: Patient is a 34-year-old male with developmental delay and seizure disorder presenting to emergency department from care home with a caregiver for complaint of a fall and seizure. History was obtained from caregiver and has altered mental status at his baseline. It is reported that patient was in the kitchen when he had a seizure. Staff is unaware if patient hit his head at the time of the fall. Is reported that patient had seizure activity for approximately 15 seconds. There was no loss of conscious at the time of the event. Caregiver states that patient has been taking his antiepileptic as prescribed. - Related Data Home Medications Medication Instructions Recorded Confirmed LORazepam [Ativan] 1 mg PO QID@08,12,1430,20 02/23/17 06/06/23 Clindamycin Topical Soln 1 applic TOPICAL DAILY@0800 04/19/19 06/06/23 [Cleocin-T Topical Soln] Metoprolol Succinate [Toprol XL] 25 mg PO DAILY@1600 04/19/19 06/06/23 Benzoyl Peroxide 10% Wash 1 applic TOPICAL DAILY@79906/16/22 06/06/23 Dicyclomine [Bentyl] 10 mg PO TID@0800,1200,199906/16/22 06/06/23 Levothyroxine Sodium [Synthroid] 50 mcg PO DAILY@59906/16/22 06/06/23 [place] Carbonate 900 mg PO DAILY@79906/16/22 06/06/23 Omeprazole 40 mg PO DAILY@59906/16/22 06/06/23 cloZAPine [Clozaril] 100 mg PO BID@0800,1200 06/16/22 06/06/23 cloZAPine [Clozaril] 300 mg PO HS@199906/16/22 06/06/23 fluPHENAZine [Prolixin] 5 mg PO BID@0800,1200 06/16/22 06/06/23 fluvoxaMINE MALEATE 50 mg PO DAILY@0800 06/16/22 06/06/23 hydrOXYzine pamoate [Vistaril] 50 mg PO Q4H PRN 06/16/22 06/06/23 Divalproex Sodium [Depakote] 2,000 mg PO HS@199905/31/23 06/06/23 Ergocalciferol [Vitamin D2 (1250 1,250 mcg PO MO@0800 05/31/23 06/06/23 Mcg = 42838 Iu)] Glycopyrrolate [Robinul Forte] 2 mg PO HS@199905/31/23 06/06/23 Optive Gel Eye Drops 1 drop BOTH EYES HS@199905/31/23 06/06/23 Tretinoin [Retin-A 0.1%] 1 applic TOPICAL HS@199905/31/23 06/06/23 cloNIDine HCL 0.2 mg PO TID@0800,1200,1600 05/31/23 06/06/23 Allergies Allergy/AdvReac Type Severity Reaction Status Date / Time No Known Allergies Allergy Verified 08/27/24 21:27 Review of Systems ROS Statement: Those systems with pertinent positive or pertinent negative responses have been documented in the HPI. ROS Other: All systems not noted in ROS Statement are negative. Past Medical History Past Medical History: Seizure Disorder Additional Past Medical History / Comment(s): anger issues, autistic, explosive disorder, mental retardation, Low heart rate with halter monitor 02/03/2019 History of Any Multi-Drug Resistant Organisms: None Reported Past Surgical History: No Surgical Hx Reported Past Anesthesia/Blood Transfusion Reactions: No Reported Reaction Past Psychological History: ADD/ADHD Smoking Status: Never smoker Past Alcohol Use History: None Reported Past Drug Use History: None Reported - Past Family History Mother Additional Family Medical History / Comment(s): Patient states mother is 44 years old and alive. Patient also has 1 brother and 1 sister which she state are healthy. General Exam Limitations: altered mental status General appearance: alert, in no apparent distress Head exam: Present: atraumatic, normocephalic, normal inspection Eye exam: Present: normal appearance, PERRL, EOMI. Absent: scleral icterus, conjunctival injection, periorbital swelling ENT exam: Present: normal exam, mucous membranes moist Neck exam: Present: normal inspection. Absent: tenderness, meningismus, lymphadenopathy Respiratory exam: Present: normal lung sounds bilaterally. Absent: respiratory distress, wheezes, rales, rhonchi, stridor Cardiovascular Exam: Present: regular rate, normal rhythm, normal heart sounds. Absent: systolic murmur, diastolic murmur, rubs, gallop, clicks GI/Abdominal exam: Present: soft, normal bowel sounds. Absent: distended, tenderness, guarding, rebound, rigid Extremities exam: Present: normal inspection, full ROM, normal capillary refill. Absent: tenderness, pedal edema, joint swelling, calf tenderness Neurological exam: Present: alert, CN II-XII intact Course Vital Signs 08/27/24 08/27/24 21:22 22:41 Temperature 97.3 F L Pulse Rate 96 71 Respiratory 18 16 Rate Blood Pressure 153/84 129/85 O2 Sat by Pulse 98 100 Oximetry Medical Decision Making - Medical Decision Making Was pt. sent in by a medical professional or institution (, PA, EVENTS MANAGER, urgent care, hospital, or assisted...) When possible be specific @ -No Did you speak to anyone other than the patient for history (EMS, parent, family, police, friend...)? What history was obtained from this source @ -Spoke to patient's caregiver at bedside who provided history of current events. Did you review nursing and triage notes (agree or disagree)? Why? @ -I reviewed and agree with nursing and triage notes Were old charts reviewed (outside hosp., previous admission, EMS record, old EKG, old radiological studies, urgent care reports/EKG's, assisted records)? Report findings @ -No old charts were reviewed Differential Diagnosis (chest pain, altered mental status, abdominal pain women, abdominal pain men, vaginal bleeding, weakness, fever, dyspnea, syncope, headache, dizziness, GI bleed, back pain, seizure, CVA, palpatations, mental health, musculoskeletal)? @ -Differential Headache: Migraine, tension, cluster, carbon monoxide, central venous thrombosis, pension karma temporal arteritis, acute closure glaucoma, intercranial hemorrhage, mastoiditis, sinusitis, head injury, this is not meant to be an all-inclusive list. EKG interpreted by me (3pts min.). @ -none X-rays interpreted by me (1pt min.). @ -None done CT interpreted by me (1pt min.). @ -CT of the brain and C-spine reveals a left frontal scalp hematoma without evidence for intracranial process, no evidence of cervical spine fracture. U/S interpreted by me (1pt. min.). @ -None done What testing was considered but not performed or refused? (CT, X-rays, U/S, labs)? Why? @ -None What meds were considered but not given or refused? Why? @ -None Did you discuss the management of the patient with other professionals (professionals i.e. , PA, EVENTS MANAGER, lab, RT, psych nurse, social security assessor, spline rolling machine job setter, teacher, corporate development officer, manager of case)? Give summary @ -No Was smoking cessation discussed for >3mins.? @ -No Was critical care preformed (if so, how long)? @ -No Were there social determinants of health that impacted care today? How? (Homelessness, low income, unemployed, alcoholism, drug addiction, transportation, low edu. Level, literacy, decrease access to med. care, care home, rehab)? @ -No Was there de-escalation of care discussed even if they declined (Discuss DNR or withdrawal of care, Hospice)? DNR status @ -No What co-morbidities impacted this encounter? (DM, HTN, Smoking, COPD, CAD, Cancer, CVA, ARF, Chemo, Hep., AIDS, mental health diagnosis, sleep apnea, morbid obesity)? @ -None Was patient admitted / discharged? Hospital course, mention meds given and route, prescriptions, significant lab abnormalities, going to OR and other pertinent info. @ -Discharge. 34-year-old male presenting with fall and possible seizure activity. History was obtained from patient's caregiver at bedside. Caregiver states that patient is currently at his baseline. [id number] glucose check 113. Patient neurological examination unremarkable. CT of the brain and C- spine without contrast reveals a left frontal scalp hematoma. Prior to imaging patient was provided with dose of Keppra. Patient is stable for discharge back to care home at this time. Discussed with Dr. Matos Undiagnosed new problem with uncertain prognosis? @ -No Drug Therapy requiring intensive monitoring for toxicity (Heparin, Nitro, Insulin, Cardizem)? @ -No Were any procedures done? @ -No Diagnosis/symptom? @ -fall, seizure Acute, or Chronic, or Acute on Chronic? @ -acute Uncomplicated (without systemic symptoms) or Complicated (systemic symptoms)? @ -uncomplicated Side effects of treatment? @ -No Exacerbation, Progression, or Severe Exacerbation? @ -No Poses a threat to life or bodily function? How? (Chest pain, [place], [place], pneumonia, PE, COPD, DKA, ARF, appy, cholecystitis, CVA, Diverticulitis, Homicidal, Suicidal, threat to staff... and all critical care pts) @ -No - Lab Data Lab Results 08/27/24 Range/Units 22:32 POC Glucose (mg/dL) 113 H (70-110) mg/dL POC Glu Stitch Bonding Machine Tender ID Disposition Clinical Impression: Fall, Seizure disorder Disposition: HOME SELF-CARE Condition: Good Instructions (If sedation given, give patient instructions): Recurrent Seizures in Adults (ED) Additional Instructions: Please return to the Emergency Department if symptoms worsen or any other concerns. Is patient prescribed a controlled substance at d/c from ED?: No Referrals: Otoniel Garcia MD [Primary Care Provider] - 1-2 days Time of Disposition: 22:35
[2024-08-27] MEDS: levETIRAcetam 500 MG TAB PO STA (22:03)
--- NOTE | 2024-08-27 22:09 | CT ---
EXAMINATION TYPE: CT brain cspine wo con DATE OF EXAM: 08/27/2024 10:00 PM COMPARISON: Previous CT study 05/07/2024. CLINICAL INDICATION: Male, 34 years old with history of fall, hit head; Fall hitting head TECHNIQUE: Brain: Multiple axial CT images of the brain were obtained without IV contrast. Cspine: Axial CT images from the skull base to the inferior aspect of T2 we obtained without intraven ous contrast. Coronal and sagittal reformatted images were also reviewed. . CT DLP: 1407.4 mGycm, Automated exposure control for dose reduction was used. FINDINGS: Brain: Extra-axial spaces: No abnormal extra-axial fluid collections. Ventricular system: Within normal limits Cerebral parenchyma: No acute intraparenchymal hemorrhage or mass effect. The benítez-white junction is well differentiated. Cerebellum: Unremarkable. Mass effect: No evidence of midline shift. Intracranial vasculature: unremarkable Soft tissues: Likely left frontal scalp hematoma. Calvarium/osseous structures: No depressed skull fracture. Paranasal sinuses and mastoid air cells: Mucosal thickening in the right maxillary sinus and scattere d ethmoid air cell mucosal thickening. Visualized orbits: Orbital contents are intact. Cervical spine: Fracture: None. Osseous structures: Unremarkable Vertebral alignment: Within normal limits. Spinal canal/Neural Foramina: No evidence of high-grade spinal canal narrowing. No evidence for high- grade neural foraminal stenosis. Neck soft tissues: Prevertebral soft tissues are within normal limits. Other: The airway is patent. The lung apices are clear. IMPRESSION: 1. Left frontal scalp hematoma without evidence of an intracranial process. 2. No evidence of cervical spine fracture. [facility], , 08/27/2024 10:07 PM
[2024-08-27 22:35] LABS: Glucose,Whole Blood 113 mg/dL (70-110)
[2024-08-27 22:44] VITALS: BP 129/85; PULSE 71; RESP 16
== END 2024-08-27 22:41 | disposition home or self-care (01) ==
LOC: EC 20:33
DX: S00.03XA Contusion of scalp, initial encounter (principal); G40.909 Epilepsy, unspecified, not intractable, without status epilepticus; Z79.899 Other long term (current) drug therapy; W19.XXXA Unspecified fall, initial encounter
CPT/HCPCS: 36415; 70450; 72125; 99284